=== PATIENT | female | born 1945 | race Caucasian/White ===

== ENCOUNTER 2017-06-02 05:39 | Inpatient (IN) | payer MEDICARE ==
[2017-06-02] MEDS ORDERED: GELATIN SPONGE,ABSORB (LARGE) 1 EACH SPONGE TOPICAL STA (06:11)
[2017-06-02] MEDS ORDERED: DIPH,PERTUS(ACELL)TETVAC-LF 0.5 ML VIAL IM ONE (06:35)
[2017-06-02] MEDS ORDERED: ceFAZolin 1,000 MG in DEXTROSE/WATER 1 50ML.BAG IVPB STA (06:35)
--- NOTE | 2017-06-02 06:39 | ED ---
General Adult HPI - General Source: patient, RN notes reviewed Mode of arrival: EMS Limitations: no limitations <Alo Potts - Last Filed: 06/02/17 07:06> <Isatu Alba - Last Filed: 06/02/17 08:13> - General Chief complaint: Wound/Laceration Stated complaint: LEG LAC Time Seen by Provider: 06/02/17 05:46 - History of Present Illness Initial comments: Patient is a pleasant 72-year-old female presenting to the emergency Department with leg laceration. Reportedly patient in bowel and cut her right leg on the side of the bed. Unclear last tetanus immunization. Patient has had bleeding since that time. EMS provided bandage however patient did have some bleeding still. Patient has not recently seen her doctor because she felt too weak. Patient has been having some shortness of breath somewhat chronically. Patient has been having leg swelling however is not taking her Lasix. (Alo Potts) - Related Data Home Medications Medication Instructions Recorded Confirmed Bumetanide 1 mg PO 06/02/17 Doxepin [SINEquan] 25 mg PO DAILY 06/02/17 06/02/17 HYDROcodone/APAP 7.5-325MG [[place] 1 tab PO Q6HR PRN 06/02/17 06/02/17 7.5-325] Losartan [Cozaar] 100 mg PO DAILY 06/02/17 06/02/17 Allergies Allergy/AdvReac Type Severity Reaction Status Date / Time Penicillins Allergy Severe Rash/Hives Verified 06/02/17 08:04 nickel Allergy Mild Rash/Hives Verified 06/02/17 08:04 Review of Systems ROS Other: All systems not noted in ROS Statement are negative. Constitutional: Denies: fever Eyes: Denies: eye pain ENT: Denies: ear pain Respiratory: Reports: dyspnea Cardiovascular: Denies: chest pain Endocrine: Reports: fatigue Gastrointestinal: Denies: abdominal pain Genitourinary: Denies: dysuria Musculoskeletal: Denies: back pain Skin: Denies: rash Neurological: Denies: headache <Alo Potts - Last Filed: 06/02/17 07:06> ROS Other: All systems not noted in ROS Statement are negative. <Isatu Alba - Last Filed: 06/02/17 08:13> ROS Statement: Those systems with pertinent positive or pertinent negative responses have been documented in the HPI. Past Medical History Past Medical History: Renal Disease Additional Past Medical History / Comment(s): PAtient is not a good historian states she has been told she has lung problems. Additional Past Surgical History / Comment(s): Hip replacement right hip. Past Psychological History: No Psychological Hx Reported Smoking Status: Never smoker Past Alcohol Use History: Heavy Past Drug Use History: None Reported <Alo Potts - Last Filed: 06/02/17 07:06> General Exam Limitations: no limitations General appearance: alert, in no apparent distress Head exam: Present: atraumatic Eye exam: Present: normal appearance, PERRL ENT exam: Present: normal oropharynx Neck exam: Present: normal inspection Respiratory exam: Present: normal lung sounds bilaterally Cardiovascular Exam: Present: irregular rhythm GI/Abdominal exam: Present: soft. Absent: tenderness Extremities exam: Present: pedal edema. Absent: calf tenderness Back exam: Present: normal inspection Neurological exam: Present: alert Psychiatric exam: Present: normal affect, normal mood Skin exam: Present: other (Right lateral lower leg with 17 cm laceration with active bleeding.) <Alo Potts - Last Filed: 06/02/17 07:06> Course <Alo Potts - Last Filed: 06/02/17 07:06> <Isatu Alba - Last Filed: 06/02/17 08:13> Vital Signs 06/02/17 06/02/17 05:41 05:56 Temperature 97.0 F L Respiratory 16 16 Rate Blood Pressure 149/84 O2 Sat by Pulse 96 Oximetry Patient was reviewed at term 8 AM, noticed quite a few abnormalities CO2 is 17 consistent with a metabolic acidosis sodium is 124 chest x-ray showed some cardiomegaly troponin is elevated 0.065 creatinine is 2.04 do not know her baseline creatinine spoke with the Dr. Altman considering her increased weakness and she bled quite a bit after the laceration also noticed some erythema because she stopped stopped taking her Lasix and chest x-ray also showed some pneumonia she be put on some antibiotics and I'm canal hold off the heparin considering a lack few hours ago with the quite a bit of bleeding can call cardiology and she also has a renal failure we'll consult the Dr. Poe ( Isatu Alba) - Reevaluation(s) Reevaluation #1: 06/02/17 07:06 Patient lost approximately 200-300 mL of blood during suturing secondary to continued active bleeding on arrival. No active bleeding at this time. (Alo Potts) EKG Findings - EKG Comments: EKG Findings:: Him EKG is atrial fibrillation ventricular rate is 91 TX interval , QRS duration is 108 QT/QTc is 398/489 review of this EKG reveals some T-wave flattening in lead 1 to and aVL, this is a very low voltage EKG no ST elevation or ST depression noticed <Isatu Alba - Last Filed: 06/02/17 08:13> Procedures - Laceration Laceration #1 Consent Obtained: verbal consent, emergent situation Time Out Performed: Yes Indication: laceration Site: lower extremity Size (cm): 17 Description: flap Depth: simple, single layer Anesthetic Used: lidocaine 1% Pre-repair: wound explored, irrigated extensively Type of Sutures: nylon Size of Sutures: 4-0 Number of Sutures: 32 <Alo Potts - Last Filed: 06/02/17 07:06> <Isatu Alba - Last Filed: 06/02/17 08:13> - Laceration Laceration #1 Additional Comments: Secondary to skin tenderness and leg swelling unable to completely approximate lacerated tissue. There is areas up to 6 or 80 m still somewhat open. There was still some mild active bleeding. Wound seal was applied. Gelfoam was applied and leg was bandaged. Following wound seal and Gelfoam, hemostasis was obtained. (Alo Potts) Medical Decision Making - Lab Data Result diagrams: 06/02/17 05:55 06/02/17 05:55 <Alo Potts - Last Filed: 06/02/17 07:06> - Lab Data Result diagrams: 06/02/17 05:55 06/02/17 05:55 <Isatu Alba - Last Filed: 06/02/17 08:13> - Lab Data Lab Results 06/02/17 06/02/17 06/02/17 Range/Units 05:55 05:55 05:55 WBC 5.5 (3.8-10.6) k/uL RBC 4.02 (3.80-5.40) m/uL Hgb 12.2 (11.4-16.0) gm/dL Hct 36.1 (34.0-46.0) % MCV 90.0 (80.0-100.0) fL MCH 30.4 (25.0-35.0) pg MCHC 33.8 (31.0-37.0) g/dL RDW 13.4 (11.5-15.5) % Plt Count 162 (150-450) k/uL Neutrophils % 68 % Lymphocytes % 18 % Monocytes % 6 % Eosinophils % 5 % Basophils % 0 % Neutrophils # 3.7 (1.3-7.7) k/uL Lymphocytes # 1.0 (1.0-4.8) k/uL Monocytes # 0.3 (0-1.0) k/uL Eosinophils # 0.3 (0-0.7) k/uL Basophils # 0.0 (0-0.2) k/uL PT (9.0-12.0) sec INR (<1.2) APTT (22.0-30.0) sec Sodium 124 L (137-145) mmol/L Potassium 4.7 (3.5-5.1) mmol/L Chloride 94 L (98-107) mmol/L Carbon Dioxide 17 L (22-30) mmol/L Anion Gap 13 mmol/L BUN 24 H (7-17) mg/dL Creatinine 2.07 H (0.52-1.04) mg/dL Est GFR (CKD-EPI)AfAm 27 (>60 ml/min/1.73 sqM) Est GFR (CKD-EPI)NonAf 23 (>60 ml/min/1.73 sqM) Glucose 83 (74-99) mg/dL Calcium 8.6 (8.4-10.2) mg/dL Total Bilirubin 1.5 H (0.2-1.3) mg/dL AST 39 H (14-36) U/L ALT 31 (9-52) U/L Alkaline Phosphatase 97 (38-126) U/L Total Creatine Kinase 49 (30-135) U/L CK-MB (CK-2) 1.4 (0.0-2.4) ng/mL CK-MB (CK-2) Rel Index 2.9 Troponin I 0.065 H* (0.000-0.034) ng/mL Total Protein 6.1 L (6.3-8.2) g/dL Albumin 3.3 L (3.5-5.0) g/dL 06/02/17 Range/Units 05:55 WBC (3.8-10.6) k/uL RBC (3.80-5.40) m/uL Hgb (11.4-16.0) gm/dL Hct (34.0-46.0) % MCV (80.0-100.0) fL MCH (25.0-35.0) pg MCHC (31.0-37.0) g/dL RDW (11.5-15.5) % Plt Count (150-450) k/uL Neutrophils % % Lymphocytes % % Monocytes % % Eosinophils % % Basophils % % Neutrophils # (1.3-7.7) k/uL Lymphocytes # (1.0-4.8) k/uL Monocytes # (0-1.0) k/uL Eosinophils # (0-0.7) k/uL Basophils # (0-0.2) k/uL PT 12.1 H (9.0-12.0) sec INR 1.3 H (<1.2) APTT 24.4 (22.0-30.0) sec Sodium (137-145) mmol/L Potassium (3.5-5.1) mmol/L Chloride (98-107) mmol/L Carbon Dioxide (22-30) mmol/L Anion Gap mmol/L BUN (7-17) mg/dL Creatinine (0.52-1.04) mg/dL Est GFR (CKD-EPI)AfAm (>60 ml/min/1.73 sqM) Est GFR (CKD-EPI)NonAf (>60 ml/min/1.73 sqM) Glucose (74-99) mg/dL Calcium (8.4-10.2) mg/dL Total Bilirubin (0.2-1.3) mg/dL AST (14-36) U/L ALT (9-52) U/L Alkaline Phosphatase (38-126) U/L Total Creatine Kinase (30-135) U/L CK-MB (CK-2) (0.0-2.4) ng/mL CK-MB (CK-2) Rel Index Troponin I (0.000-0.034) ng/mL Total Protein (6.3-8.2) g/dL Albumin (3.5-5.0) g/dL Disposition <Alo Potts - Last Filed: 06/02/17 07:06> <Isatu Alba - Last Filed: 06/02/17 08:13> Clinical Impression: Weakness, Renal failure, Pneumonia, Myocardial infarction, Atrial fibrillation Disposition: ADMITTED IP TO THIS HOSP Condition: Good Referrals: Marciano Altman MD [Primary Care Provider] - 1-2 days
[2017-06-02 06:49] LABS: Basophils % (A) 0 %; Eosinophils # (A) 0.3 k/uL (0-0.7); Eosinophils % (A) 5 %; HCT 36.1 % (34.0-46.0); HGB 12.2 gm/dL (11.4-16.0); Lymphocytes % (A) 18 %; MCH 30.4 pg (25.0-35.0); MCHC 33.8 g/dL (31.0-37.0); Mean Platelet Volume 7.6; Monocytes # (A) 0.3 k/uL (0-1.0); Monocytes % (A) 6 %; Neutrophils # (A) 3.7 k/uL (1.3-7.7); Neutrophils % (A) 68 %; Platelet Count 162 k/uL (150-450); RBC 4.02 m/uL (3.80-5.40); RDW 13.4 % (11.5-15.5); WBC 5.5 k/uL (3.8-10.6)
[2017-06-02 06:56] LABS: INR 1.3 (<1.2); Partial Thromboplastin Time 24.4 sec (22.0-30.0); Prothrombin Time 12.1 sec (9.0-12.0)
[2017-06-02 07:00] LABS: Albumin 3.3 g/dL (3.5-5.0); Calcium 8.6 mg/dL (8.4-10.2); Potassium 4.7 mmol/L (3.5-5.1); Total Bilirubin 1.5 mg/dL (0.2-1.3); Total Protein 6.1 g/dL (6.3-8.2)
--- NOTE | 2017-06-02 07:06 | XR ---
EXAMINATION TYPE: XR chest 2V DATE OF EXAM: 06/02/2017 COMPARISON: Chest x-ray March 16, 2013. HISTORY: Shortness of breath. TECHNIQUE: Frontal and lateral views of the chest are obtained. FINDINGS: Cardiomegaly is redemonstrated. There is worsening left basilar opacity now felt to reflec t moderate size left pleural effusion and associated left basilar atelectasis and/or infiltrate. Slig ht mediastinal shift to the left is felt present. Right lung remains clear. The osseous structures are intact. IMPRESSION: Cardiomegaly with increasing left basilar opacity, suspect fairly moderate size left ple ural effusion on current study. There is associated left basilar atelectasis and/or infiltrate. Subtl e left-sided volume loss with favor atelectatic component.
[2017-06-02 07:22] LABS: Creatine Kinase MB 1.4 ng/mL (0.0-2.4)
[2017-06-02 07:26] LABS: Troponin I 0.065 ng/mL (0.000-0.034)
--- NOTE | 2017-06-02 07:31 | XR ---
EXAMINATION TYPE: XR tibia fibula RT DATE OF EXAM: 06/02/2017 CLINICAL HISTORY: Laceration injury with pain. TECHNIQUE: Two views of the right leg are obtained. COMPARISON: None. FINDINGS: Osseous structures are demineralized which is noted to lower radiographic sensitivity. The re is no acute fracture or dislocation seen in the right tibia or fibula. There is moderate to severe medial compartment joint space loss at level of knee. Visualized ankle joint is within normal limits . There is moderate diffuse subcutaneous edema. Artifact from overlying sock or compression device is noted. IMPRESSION: There is no acute fracture or dislocation seen in the right tibia or fibula.
[2017-06-02] MEDS ORDERED: NITROGLYCERIN SL TABS 0.4 MG TAB SUBLINGUAL PRN (08:14)
[2017-06-02] MEDS ORDERED: HEPARIN SODIUM,PORCINE 5,000 UNIT/ML 1 ML VIAL IV ONE (08:14)
[2017-06-02] MEDS ORDERED: HEPARIN SOD,PORK IN 0.45% NACL 25,000 UNIT in 0.45% NACL 1 500ML.BAG IV SCH (08:15)
[2017-06-02] MEDS ORDERED: AZITHROMYCIN 500 MG TAB PO STA (08:22)
[2017-06-02] MEDS ORDERED: cefTRIAXone IN SWFI 2,000 MG/20 ML SYRINGE IVP STA (08:22)
[2017-06-02] MEDS ORDERED: BUMETANIDE 1 MG TAB PO SCH (09:00)
[2017-06-02] MEDS ORDERED: LOSARTAN 50 MG TAB PO SCH (09:00)
[2017-06-02] MEDS: HYDROcodone/APAP 7.5-325MG 1 EACH TAB PO PRN ×2 (09:20→18:29)
[2017-06-02] MEDS: DOXEPIN 25 MG CAP PO SCH (09:21)
--- NOTE | 2017-06-02 12:12 | CONS ---
CONSULTATION Shannan is a 72-year-old lady with history of hypertension who presents to the hospital having had a fall at home with laceration involving the right leg. In the ER, she was found to be in atrial fibrillation for which Cardiology had been consulted. She denies chest pain, difficulty in breathing, palpitations, dizziness or syncope. The patient had series of labs in the ER that showed renal insufficiency with a creatinine of 2 and for unclear reasons both troponin and BNP have been done and the troponin came back at 0.06. BNP is elevated at 7230. The patient is being admitted for all these problems. Her main problem at home is that she has bilateral knee arthritis and her physical activity is very limited. PAST MEDICAL HISTORY: Past medical history is significant for hypertension. MEDICATIONS: Medications include [place], Cozaar, doxepin, and Bumex. ALLERGIES: Allergic to PENICILLIN. FAMILY HISTORY: Family history is negative for premature coronary artery disease. SOCIAL HISTORY: Negative for current smoking, EtOH abuse, or drug abuse. REVIEW OF SYSTEMS: HEENT is unremarkable. CARDIAC: As described above. RESPIRATORY: Negative. GI: Negative. GENITOURINARY: Negative, ALLERGY/IMMUNOLOGY: Negative. SKIN: Negative. MUSCULOSKELETAL: Significant for fall and laceration. PSYCHOSOCIAL: Negative. ENDOCRINE: Negative. HEMATOLOGICAL: Negative. DERM: Negative. ONCOLOGICAL: Negative. PHYSICAL EXAM: On exam, comfortable at rest. Vital signs are stable. There is no jugular venous distention. Carotid upstroke is normal. There is no bruit. Chest exam reveals good air entry bilaterally. Heart exam reveals first and second heart sounds, irregular rhythm. No murmur. Abdomen is soft, nontender. Examination of extremities did not reveal any edema. Peripheral pulses are palpable. Right leg is covered by surgical dressing. LABS: Labs show a hemoglobin of 12.2. Potassium is 4.7. Creatinine is 2. Troponin is 0.065. ASSESSMENT: 1. Persistent atrial fibrillation, new onset, heart rate is well controlled. 2. Elevated troponin probably related to renal insufficiency. 3. Renal insufficiency. 4. Chronic congestive heart failure. PLAN: Patient is currently on IV heparin, which I am going to continue. If the patient is covered for Eliquis, we will switch her to Eliquis. I will obtain a 2D echo to assess her LV function. The elevated troponin does not require further evaluation at this time. However, we will consider an outpatient stress test on her. Patient has hyponatremia, this may be related to the Bumex that she is on. I am going to hold it at this time. MMJELLY / ESE: [id number] /
--- NOTE | 2017-06-02 12:51 | P.NPCON ---
History of Present Illness - Reason for Consult acute renal failure, hyponatremia - History of Present Illness Reason for consultation: Acute kidney injury and hyponatremia History of present illness: Patient is a 72-year-old female seen in renal consultation for acute kidney injury and hyponatremia. Unclear as to what her baseline renal function is. Patient denies any prior history of kidney disease. Her creatinine on admission today is 2.07. Patient presented to the hospital after sustaining a fall. Patient states uses a walker at home and sustained a mechanical fall injuring her left lower extremity. Patient also states that she is maintained on Bumex as an outpatient but did not take it for the last 1 week. She has been voiding. Denies any hematuria or dysuria. She denies history of diabetes. Her sodium level was noted to be low at 124 on admission. She is noted to have left-sided pleural effusion on chest x-ray. Patient states she is retaining quite a bit of water due to not taking her diuretics last week. Denies chest pain. Does admit to dyspnea. She admits to using NSAIDs intermittently as needed for pain. She did receive a dose of oral Bumex this morning in the ER. She is currently undergoing an echocardiogram. Denies family history of renal disease. No evidence of hypotension. Most recent blood pressure was 136/62. She is also noted to have erythema in her lower extremities and is maintained on cefazolin at this time. Vital signs are stable. General: The patient appeared well nourished and normally developed. HEENT: Head exam is unremarkable. Neck is without jugular venous distension. LUNGS: Lungs are clear to auscultation and percussion. Breath sounds decreased. HEART: Rate and Rhythm are regular. First and second heart sounds normal. No murmurs, rubs or gallops. ABDOMEN: Abdominal exam reveals normal bowel sounds. Non-tender and non- distended. No evidence of peritonitis. EXTREMITITES: Bilateral lower extremity erythema noted. 1+ edema. No obvious drainage. Past Medical History Past Medical History: Renal Disease Additional Past Medical History / Comment(s): PAtient is not a good historian states she has been told she has lung problems. Additional Past Surgical History / Comment(s): Hip replacement right hip. Past Psychological History: No Psychological Hx Reported Smoking Status: Never smoker Past Alcohol Use History: Heavy Past Drug Use History: None Reported Medications and Allergies Home Medications Medication Instructions Recorded Confirmed Type Bumetanide 1 mg PO DAILY 06/02/17 06/02/17 History Doxepin [SINEquan] 25 mg PO DAILY 06/02/17 06/02/17 History HYDROcodone/APAP 7.5-325MG [[place] 1 tab PO Q6HR PRN 06/02/17 06/02/17 History 7.5-325] Losartan [Cozaar] 100 mg PO DAILY 06/02/17 06/02/17 History Allergies Allergy/AdvReac Type Severity Reaction Status Date / Time Penicillins Allergy Severe Rash/Hives Verified 06/02/17 08:04 nickel Allergy Mild Rash/Hives Verified 06/02/17 08:04 Physical Exam Vitals: Vital Signs Temp Pulse Resp BP Pulse Ox 06/02/17 11:07 83 18 136/62 100 06/02/17 10:06 94 16 124/63 99 06/02/17 09:28 92 18 154/70 99 06/02/17 08:15 88 18 128/67 100 06/02/17 05:56 16 06/02/17 05:41 97.0 F L 16 149/84 96 Intake and Output 06/01/17 06/02/17 06/02/17 22:59 06:59 14:59 Other: Weight 102.058 kg Results - Lab Results Most recent lab results Calcium 8.6 mg/dL (8.4-10.2) 06/02/17 05:55 06/02/17 05:55 06/02/17 05:55 Assessment and Plan Plan: Assessment: #1. Nonoliguric acute kidney injury secondary to ATN secondary to cardiorenal syndrome. Creatinine 2.07 on admission. Unclear as to what her baseline renal function is. #2. Hypervolemic hyponatremia. #3. Metabolic acidosis secondary to acute kidney injury. #4. Lower extremity cellulitis maintained on antibiotics. #5. Volume overload. Left-sided pleural effusion present on chest x-ray. Plan: Start Lasix 60 mg IV twice daily. Discontinue oral diuretics. 1200 mL fluid restriction. Check urine sodium and urine/serum osmolality. Add oral sodium bicarbonate 1300 mg twice daily. Check urinalysis. Check renal ultrasound. Follow-up echocardiogram results. Repeat electrolytes at 8 PM today. Avoid nephrotoxic agents and hypotensive episodes. Thank you for the consultation. I will continue to follow the patient with you during her hospital stay.
[2017-06-02] MEDS: SODIUM BICARBONATE TAB 650 MG TAB PO SCH ×2 (12:55→20:34)
[2017-06-02 13:05] LABS: Creatine Kinase MB 1.6 ng/mL (0.0-2.4)
[2017-06-02 13:10] LABS: Troponin I 0.066 ng/mL (0.000-0.034)
--- NOTE | 2017-06-02 14:17 | US ---
EXAMINATION TYPE: US kidneys/renal and bladder DATE OF EXAM: 06/02/2017 COMPARISON: NONE CLINICAL HISTORY: 72 year-old female acute kidney injury. Technique: Multiple sonographic images of the kidneys and bladder are obtained. FINDINGS: Radiology Clerk notes: Exam limited by morbid and obesity. Right Kidney: 9.6 x 5.4 x 5.2 cm without evident hydronephrosis. Left Kidney: 9.2 x 4.9 x 5.8 cm without evident hydronephrosis. Underdistention of the bladder limits its evaluation.Bilateral Jets seen: no IMPRESSION: Very limited exam due to patient's large body habitus. No obvious hydronephrosis seen.
[2017-06-02] MEDS ORDERED: ceFAZolin 1,000 MG in DEXTROSE/WATER 1 50ML.BAG IVPB SCH (16:00)
[2017-06-02 16:32] LABS: Appearance,Urine Turbid (Clear); Bacteria,Urine Few /hpf; Bilirubin,Urine Negative (Negative); Blood,Urine Moderate (Negative); Color,Urine Yellow; Glucose,Urine (UA) Negative (Negative); Ketones,Urine Negative (Negative); Leukocyte Esterase,Urine Large (Negative); Nitrite,Urine Negative (Negative); PH, Urine 5.5 (5.0-8.0); Protein,Urine 1+ (Negative); Specific Gravity,Urine 1.013 (1.001-1.035); Squamous Epithelial Cell,Urine 4 /hpf (0-4); Urobilinogen,Urine <2.0 mg/dL (<2.0); WBC,Urine >182 /hpf (0-5)
[2017-06-02 19:03] LABS: Creatine Kinase MB 1.8 ng/mL (0.0-2.4)
[2017-06-02] MEDS ORDERED: LIDOCAINE 1%-EPI 1:100,000 30 ML VIAL SQ STA (19:06)
[2017-06-02 19:14] LABS: Troponin I 0.052 ng/mL (0.000-0.034)
[2017-06-02] MEDS: MORPHINE ORAL SOLN 10 MG/5 ML CUP PO PRN (19:15)
[2017-06-02 19:24] LABS: HCT 31.6 % (34.0-46.0); HGB 10.4 gm/dL (11.4-16.0); MCH 29.9 pg (25.0-35.0); MCHC 32.8 g/dL (31.0-37.0); MCV 91.3 fL (80.0-100.0); Mean Platelet Volume 8.6; Platelet Count 139 k/uL (150-450); RBC 3.46 m/uL (3.80-5.40); RDW 13.6 % (11.5-15.5); WBC 6.7 k/uL (3.8-10.6)
[2017-06-02 19:33] LABS: Calcium 8.4 mg/dL (8.4-10.2)
--- NOTE | 2017-06-02 20:01 | P.GSCN ---
History of Present Illness Consult date: 06/02/17 History of present illness: This [age] female presented a hospital after a fall. She is found have new onset A. fib.She apparently suffered a right lower extremity skin tear and laceration which was repaired in the emergency department. She is found have an elevated troponin along with the new onset A. fib and was started on a heparin drip. When she got to the floor she began bleeding from the right lower extremity wound. She developed a hematoma and had bleeding which would not stop therefore surgery was consult. Direct pressure was held and the heparin was stopped for 2 hours while pressure was held and the bleeding stopped. Review of Systems - Constitutional Reports as per HPI Past Medical History Past Medical History: GERD/Reflux, Hypertension, Pneumonia, Renal Disease Additional Past Medical History / Comment(s): pt somewhat a poor historian- assisted with admission hx.. 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 History of Any Multi-Drug Resistant Organisms: None Reported Past Surgical History: Appendectomy Additional Past Surgical History / Comment(s): Hip replacement right hip. sx for ecopic pregnancies x2 -both fallopian tubes removed and 1 ovary (not sure which one). Past Anesthesia/Blood Transfusion Reactions: Motion Sickness Additional Past Anesthesia/Blood Transfusion Reaction / Comm: clausterphobia Smoking Status: Former smoker - Past Family History Mother Family Medical History: Renal Disease Father Family Medical History: CVA/TIA, Hyperlipidemia, Hypertension Additional Family Medical History / Comment(s): from stroke age 45 Medications and Allergies Home Medications Medication Instructions Recorded Confirmed Type Bumetanide 1 mg PO DAILY 06/02/17 06/02/17 History Doxepin [SINEquan] 25 mg PO DAILY 06/02/17 06/02/17 History HYDROcodone/APAP 7.5-325MG [[place] 1 tab PO Q6HR PRN 06/02/17 06/02/17 History 7.5-325] Losartan [Cozaar] 100 mg PO DAILY 06/02/17 06/02/17 History Allergies Allergy/AdvReac Type Severity Reaction Status Date / Time Penicillins Allergy Severe Rash/Hives Verified 06/02/17 08:04 nickel Allergy Mild Rash/Hives Verified 06/02/17 08:04 Surgical - Exam Osteopathic Statement: *. No significant issues noted on an osteopathic structural exam other than those noted in the History and Physical/Consult. Vital Signs Temp Resp BP Pulse Ox 97.0 F L 16 149/84 96 06/02/17 05:41 06/02/17 05:41 06/02/17 05:41 06/02/17 05:41 - General well developed, well nourished - Eyes PERRL - ENT normal pinna, normal mucosa - Neck no masses, trachea midline - Respiratory normal expansion, normal respiratory effort - Cardiovascular Rhythm: irregularly irregular - Abdomen Abdomen: soft, non tender - Integumentary 6 cm skin tear laceration on the right anterior leg with large hematoma. No active bleeding - Neurologic normal coordination, normal sensation - Psychiatric oriented to time, oriented to person, oriented to place Results - Labs 06/02/17 19:07 06/02/17 19:07 Abnormal Lab Results - Last 24 Hours (Table) 06/02/17 06/02/17 06/02/17 Range/Units 05:55 05:55 05:55 RBC (3.80-5.40) m/uL Hgb (11.4-16.0) gm/dL Hct (34.0-46.0) % Plt Count (150-450) k/uL PT 12.1 H (9.0-12.0) sec INR 1.3 H (<1.2) APTT (22.0-30.0) sec Sodium 124 L (137-145) mmol/L Chloride 94 L (98-107) mmol/L Carbon Dioxide 17 L (22-30) mmol/L BUN 24 H (7-17) mg/dL Creatinine 2.07 H (0.52-1.04) mg/dL Osmolality (280-301) mosm/kg Total Bilirubin 1.5 H (0.2-1.3) mg/dL AST 39 H (14-36) U/L Troponin I 0.065 H* (0.000-0.034) ng/mL Total Protein 6.1 L (6.3-8.2) g/dL Albumin 3.3 L (3.5-5.0) g/dL Urine Appearance (Clear) Urine Protein (Negative) Urine Blood (Negative) Ur Leukocyte Esterase (Negative) Urine WBC (0-5) /hpf Urine WBC Clumps (None) /hpf Urine Bacteria (None) /hpf 06/02/17 06/02/17 06/02/17 Range/Units 11:53 11:53 15:38 RBC (3.80-5.40) m/uL Hgb (11.4-16.0) gm/dL Hct (34.0-46.0) % Plt Count (150-450) k/uL PT (9.0-12.0) sec INR (<1.2) APTT 69.8 H (22.0-30.0) sec Sodium (137-145) mmol/L Chloride (98-107) mmol/L Carbon Dioxide (22-30) mmol/L BUN (7-17) mg/dL Creatinine (0.52-1.04) mg/dL Osmolality 264 L (280-301) mosm/kg Total Bilirubin (0.2-1.3) mg/dL AST (14-36) U/L Troponin I 0.066 H* (0.000-0.034) ng/mL Total Protein (6.3-8.2) g/dL Albumin (3.5-5.0) g/dL Urine Appearance (Clear) Urine Protein (Negative) Urine Blood (Negative) Ur Leukocyte Esterase (Negative) Urine WBC (0-5) /hpf Urine WBC Clumps (None) /hpf Urine Bacteria (None) /hpf 06/02/17 06/02/17 06/02/17 Range/Units 16:19 18:01 19:07 RBC (3.80-5.40) m/uL Hgb (11.4-16.0) gm/dL Hct (34.0-46.0) % Plt Count (150-450) k/uL PT (9.0-12.0) sec INR (<1.2) APTT (22.0-30.0) sec Sodium 125 L (137-145) mmol/L Chloride 92 L (98-107) mmol/L Carbon Dioxide (22-30) mmol/L BUN 27 H (7-17) mg/dL Creatinine 2.01 H (0.52-1.04) mg/dL Osmolality (280-301) mosm/kg Total Bilirubin (0.2-1.3) mg/dL AST (14-36) U/L Troponin I 0.052 H* (0.000-0.034) ng/mL Total Protein (6.3-8.2) g/dL Albumin (3.5-5.0) g/dL Urine Appearance Turbid H (Clear) Urine Protein 1+ H (Negative) Urine Blood Moderate H (Negative) Ur Leukocyte Esterase Large H (Negative) Urine WBC >182 H (0-5) /hpf Urine WBC Clumps Many H (None) /hpf Urine Bacteria Few H (None) /hpf 06/02/17 Range/Units 19:07 RBC 3.46 L (3.80-5.40) m/uL Hgb 10.4 L (11.4-16.0) gm/dL Hct 31.6 L (34.0-46.0) % Plt Count 139 L (150-450) k/uL PT (9.0-12.0) sec INR (<1.2) APTT (22.0-30.0) sec Sodium (137-145) mmol/L Chloride (98-107) mmol/L Carbon Dioxide (22-30) mmol/L BUN (7-17) mg/dL Creatinine (0.52-1.04) mg/dL Osmolality (280-301) mosm/kg Total Bilirubin (0.2-1.3) mg/dL AST (14-36) U/L Troponin I (0.000-0.034) ng/mL Total Protein (6.3-8.2) g/dL Albumin (3.5-5.0) g/dL Urine Appearance (Clear) Urine Protein (Negative) Urine Blood (Negative) Ur Leukocyte Esterase (Negative) Urine WBC (0-5) /hpf Urine WBC Clumps (None) /hpf Urine Bacteria (None) /hpf Diabetes panel 06/02/17 06/02/17 Range/Units 05:55 19:07 Sodium 124 L 125 L (137-145) mmol/L Potassium 4.7 5.0 (3.5-5.1) mmol/L Chloride 94 L 92 L (98-107) mmol/L Carbon Dioxide 17 L 23 (22-30) mmol/L BUN 24 H 27 H (7-17) mg/dL Creatinine 2.07 H 2.01 H (0.52-1.04) mg/dL Glucose 83 91 (74-99) mg/dL Calcium 8.6 8.4 (8.4-10.2) mg/dL AST 39 H (14-36) U/L ALT 31 (9-52) U/L Alkaline Phosphatase 97 (38-126) U/L Total Protein 6.1 L (6.3-8.2) g/dL Albumin 3.3 L (3.5-5.0) g/dL Calcium panel 06/02/17 06/02/17 Range/Units 05:55 19:07 Calcium 8.6 8.4 (8.4-10.2) mg/dL Albumin 3.3 L (3.5-5.0) g/dL Pituitary panel 06/02/17 06/02/17 Range/Units 05:55 19:07 Sodium 124 L 125 L (137-145) mmol/L Potassium 4.7 5.0 (3.5-5.1) mmol/L Chloride 94 L 92 L (98-107) mmol/L Carbon Dioxide 17 L 23 (22-30) mmol/L BUN 24 H 27 H (7-17) mg/dL Creatinine 2.07 H 2.01 H (0.52-1.04) mg/dL Glucose 83 91 (74-99) mg/dL Calcium 8.6 8.4 (8.4-10.2) mg/dL Adrenal panel 06/02/17 06/02/17 Range/Units 05:55 19:07 Sodium 124 L 125 L (137-145) mmol/L Potassium 4.7 5.0 (3.5-5.1) mmol/L Chloride 94 L 92 L (98-107) mmol/L Carbon Dioxide 17 L 23 (22-30) mmol/L BUN 24 H 27 H (7-17) mg/dL Creatinine 2.07 H 2.01 H (0.52-1.04) mg/dL Glucose 83 91 (74-99) mg/dL Calcium 8.6 8.4 (8.4-10.2) mg/dL Total Bilirubin 1.5 H (0.2-1.3) mg/dL AST 39 H (14-36) U/L ALT 31 (9-52) U/L Alkaline Phosphatase 97 (38-126) U/L Total Protein 6.1 L (6.3-8.2) g/dL Albumin 3.3 L (3.5-5.0) g/dL Assessment and Plan Assessment: Right lower extremity laceration and hematoma, A. fib elevated troponins Plan: At this time the bleeding is controlled. I do not recommend continuing with heparin given she was actively bleeding well on it. We will continue with a pressure dressing. When patient is cleared from medicine and cardiology standpoint she will likely need debridement in the operating room and possible wound VAC placement.
[2017-06-02] MEDS: ATORVASTATIN 40 MG TAB PO SCH (20:34)
[2017-06-02] MEDS ORDERED: FUROSEMIDE 10 MG/ML 10 ML VIAL IV SCH (21:00)
--- NOTE | 2017-06-02 21:36 | ECHOF ---
Referral Reason:afib MEASUREMENTS -------- HEIGHT: 165.1 cm WEIGHT: 102.1 kg BP: 136/62 RVIDd: 3.3 cm (< 3.3) IVSd: 1.6 cm (0.6 - 1.1) LVIDd: 4.2 cm (3.9 - 5.3) LVPWd: 1.6 cm (0.6 - 1.1) IVSs: 1.7 cm LVIDs: 3.2 cm LVPWs: 1.7 cm LA Diam: 3.7 cm (2.7 - 3.8) LAESV Index (A-L): 35.92 ml/m Ao Diam: 2.9 cm (2.0 - 3.7) AV Cusp: 1.6 cm (1.5 - 2.6) MV EXCURSION: 13.189 mm (> 18.000) MV EF SLOPE: 55 mm/s (70 - 150) EPSS: 1.6 cm RAP: 5.00 mmHg RVSP: 33.39 mmHg FINDINGS -------- Atrial fibrillation. This was a technically difficult study with suboptimal views. The left ventricular size is normal. There is moderate concentric left ventricular hypertrophy. O verall left ventricular systolic function is severely impaired with, an EF between 25 - 30 %. The right ventricle is mildly enlarged. LA is moderately dilated 34-39 ml/m2 The right atrium is normal in size. 5 ml of Lumason was utilized for enhancement of images. There is mild aortic valve sclerosis. The mitral valve leaflets are mildly thickened. Mild mitral annular calcification present. Mild m itral regurgitation is present. Mild tricuspid regurgitation present. There is borderline pulmonary hypertension. The right ventr icular systolic pressure, as measured by Doppler, is 33.39mmHg. Moderate pulmonic regurgitation. The aortic root size is normal. IVC Not well visulized. There is no pericardial effusion. CONCLUSIONS -------- 1. Atrial fibrillation. 2. This was a technically difficult study with suboptimal views. 3. The left ventricular size is normal. 4. There is moderate concentric left ventricular hypertrophy. 5. Overall left ventricular systolic function is severely impaired with, an EF between 25 - 30 %. 6. The right ventricle is mildly enlarged. 7. LA is moderately dilated 34-39 ml/m2 8. The right atrium is normal in size. 9. 5 ml of Lumason was utilized for enhancement of images. 10. There is mild aortic valve sclerosis. 11. The mitral valve leaflets are mildly thickened. 12. Mild mitral annular calcification present. 13. Mild mitral regurgitation is present. 14. Mild tricuspid regurgitation present. 15. There is borderline pulmonary hypertension. 16. The right ventricular systolic pressure, as measured by Doppler, is 33.39mmHg. 17. Moderate pulmonic regurgitation. 18. The aortic root size is normal. 19. IVC Not well visulized. 20. There is no pericardial effusion. CLIENT SERVICES ASSISTANT: Neeta James RDCS
[2017-06-02 21:45] LABS: Glucose,Whole Blood 100 mg/dL (75-99)
[2017-06-03 06:03] LABS: Glucose,Whole Blood 76 mg/dL (75-99)
[2017-06-03 06:49] LABS: Glucose,Whole Blood 83 mg/dL (75-99)
[2017-06-03 07:29] LABS: Basophils % (A) 1 %; Eosinophils # (A) 0.3 k/uL (0-0.7); Eosinophils % (A) 6 %; HCT 32.3 % (34.0-46.0); HGB 10.1 gm/dL (11.4-16.0); Lymphocytes # (A) 0.8 k/uL (1.0-4.8); Lymphocytes % (A) 15 %; MCH 28.9 pg (25.0-35.0); MCHC 31.3 g/dL (31.0-37.0); MCV 92.4 fL (80.0-100.0); Mean Platelet Volume 8.2; Monocytes # (A) 0.3 k/uL (0-1.0); Monocytes % (A) 5 %; Neutrophils # (A) 3.7 k/uL (1.3-7.7); Neutrophils % (A) 72 %; Platelet Count 137 k/uL (150-450); RBC 3.49 m/uL (3.80-5.40); RDW 13.6 % (11.5-15.5); WBC 5.1 k/uL (3.8-10.6)
--- NOTE | 2017-06-03 07:31 | P.HPIM ---
History of Present Illness H&P Date: 06/03/17 Chief Complaint: Elevated troponin, fall This is a history of physical 72-year-old white female who is somewhat a poor historian who states yesterday she had significant change in activity. She has a walker that she was pushing and she actually pushed so hard she fell forward and injured her leg. Evaluation in the emergency room did show atrial fibrillation and renal failure. Troponin is elevated and she is in placed on heparin however this caused significant bleeding of the wound. This is now after surgical evaluation, had hemostasis. The patient however has had a somewhat sudden onset change in mental status this morning. She seems much more suspicious of everyone around her. She is asking for her . Question onset of delirium. Review of Systems Constitutional: Reports fatigue Eyes: denies blurred vision, denies pain Ears, nose, mouth and throat: Denies headache, Denies sore throat Cardiovascular: Reports dyspnea on exertion, Denies chest pain, Denies syncope Respiratory: Denies cough Gastrointestinal: Denies abdominal pain, Denies diarrhea, Denies nausea, Denies vomiting Genitourinary: Denies dysuria, Denies hematuria Musculoskeletal: Denies myalgias Integumentary: Reports rash, Reports wounds, Denies pruritus Neurological: Reports weakness, Denies headaches, Denies numbness Psychiatric: Reports confusion, Reports depression Past Medical History Past Medical History: GERD/Reflux, Hypertension, Pneumonia, Renal Disease Additional Past Medical History / Comment(s): pt somewhat a poor historian- assisted with admission hx.. 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 History of Any Multi-Drug Resistant Organisms: None Reported Past Surgical History: Appendectomy Additional Past Surgical History / Comment(s): Hip replacement right hip. sx for ecopic pregnancies x2 -both fallopian tubes removed and 1 ovary (not sure which one). Past Anesthesia/Blood Transfusion Reactions: Motion Sickness Additional Past Anesthesia/Blood Transfusion Reaction / Comment(s): clausterphobia Smoking Status: Former smoker - Past Family History Mother Family Medical History: Renal Disease Father Family Medical History: CVA/TIA, Hyperlipidemia, Hypertension Additional Family Medical History / Comment(s): from stroke age 45 Medications and Allergies Home Medications Medication Instructions Recorded Confirmed Type Bumetanide 1 mg PO DAILY 06/02/17 06/02/17 History Doxepin [SINEquan] 25 mg PO DAILY 06/02/17 06/02/17 History HYDROcodone/APAP 7.5-325MG [[place] 1 tab PO Q6HR PRN 06/02/17 06/02/17 History 7.5-325] Losartan [Cozaar] 100 mg PO DAILY 06/02/17 06/02/17 History Allergies Allergy/AdvReac Type Severity Reaction Status Date / Time Penicillins Allergy Severe Rash/Hives Verified 06/02/17 08:04 nickel Allergy Mild Rash/Hives Verified 06/02/17 08:04 Physical Exam Vitals: Vital Signs Temp Pulse Pulse Pulse Resp BP BP 06/03/17 03:51 98 13 06/03/17 03:49 96.9 F L 72 98 13 112/58 06/02/17 23:37 92 20 06/02/17 23:34 96.8 F L 65 92 15 130/69 06/02/17 20:00 96.8 F L 78 91 20 115/69 06/02/17 15:03 98 F 94 20 120/71 06/02/17 14:45 94 20 06/02/17 14:22 86 16 133/66 06/02/17 12:57 91 20 140/80 06/02/17 11:07 83 18 136/62 06/02/17 10:06 94 16 124/63 06/02/17 09:28 92 18 154/70 06/02/17 08:15 88 18 128/67 Pulse Ox 06/03/17 03:51 06/03/17 03:49 95 06/02/17 23:37 06/02/17 23:34 95 06/02/17 20:00 98 06/02/17 15:03 96 06/02/17 14:45 06/02/17 14:22 100 06/02/17 12:57 100 06/02/17 11:07 100 06/02/17 10:06 99 06/02/17 09:28 99 06/02/17 08:15 100 Intake and Output 06/02/17 06/03/17 06/03/17 22:59 06:59 14:59 Intake Total 0 150 Output Total 50 Balance -50 150 Intake: Oral 0 150 Output: Urine 50 Other: Voiding Method Indwelling Catheter Indwelling Catheter Weight 115 kg - Constitutional General appearance: obese - EENT Eyes: no abnormal pupil - Respiratory Respiratory: bilateral: CTA - Cardiovascular Rhythm: irregularly irregular Abnormal Heart Sounds: no S3 Gallop - Gastrointestinal General gastrointestinal: soft, no tenderness - Integumentary Integumentary: rash - Musculoskeletal Lower extremity weakness to dorsiflexion. - Psychiatric Psychiatric: no A&O x's 3, no intact judgment & insight Results CBC & Chem 7: 06/02/17 19:07 06/02/17 19:07 Labs: Abnormal Lab Results - Last 24 Hours (Table) 06/02/17 06/02/17 06/02/17 Range/Units 05:55 11:53 11:53 RBC (3.80-5.40) m/uL Hgb (11.4-16.0) gm/dL Hct (34.0-46.0) % Plt Count (150-450) k/uL APTT (22.0-30.0) sec Sodium (137-145) mmol/L Chloride (98-107) mmol/L BUN (7-17) mg/dL Creatinine (0.52-1.04) mg/dL POC Glucose (mg/dL) (75-99) mg/dL Osmolality 264 L (280-301) mosm/kg Troponin I 0.065 H* 0.066 H* (0.000-0.034) ng/mL Urine Appearance (Clear) Urine Protein (Negative) Urine Blood (Negative) Ur Leukocyte Esterase (Negative) Urine WBC (0-5) /hpf Urine WBC Clumps (None) /hpf Urine Bacteria (None) /hpf 06/02/17 06/02/17 06/02/17 Range/Units 15:38 16:19 18:01 RBC (3.80-5.40) m/uL Hgb (11.4-16.0) gm/dL Hct (34.0-46.0) % Plt Count (150-450) k/uL APTT 69.8 H (22.0-30.0) sec Sodium (137-145) mmol/L Chloride (98-107) mmol/L BUN (7-17) mg/dL Creatinine (0.52-1.04) mg/dL POC Glucose (mg/dL) (75-99) mg/dL Osmolality (280-301) mosm/kg Troponin I 0.052 H* (0.000-0.034) ng/mL Urine Appearance Turbid H (Clear) Urine Protein 1+ H (Negative) Urine Blood Moderate H (Negative) Ur Leukocyte Esterase Large H (Negative) Urine WBC >182 H (0-5) /hpf Urine WBC Clumps Many H (None) /hpf Urine Bacteria Few H (None) /hpf 06/02/17 06/02/17 06/02/17 Range/Units 19:07 19:07 21:43 RBC 3.46 L (3.80-5.40) m/uL Hgb 10.4 L (11.4-16.0) gm/dL Hct 31.6 L (34.0-46.0) % Plt Count 139 L (150-450) k/uL APTT (22.0-30.0) sec Sodium 125 L (137-145) mmol/L Chloride 92 L (98-107) mmol/L BUN 27 H (7-17) mg/dL Creatinine 2.01 H (0.52-1.04) mg/dL POC Glucose (mg/dL) 100 H (75-99) mg/dL Osmolality (280-301) mosm/kg Troponin I (0.000-0.034) ng/mL Urine Appearance (Clear) Urine Protein (Negative) Urine Blood (Negative) Ur Leukocyte Esterase (Negative) Urine WBC (0-5) /hpf Urine WBC Clumps (None) /hpf Urine Bacteria (None) /hpf Microbiology - Last 24 Hours (Table) 06/02/17 16:19 Urine Culture - Preliminary Urine,Clean Catch Assessment and Plan (1) Atrial fibrillation Current Visit: Yes Status: Acute Code(s): I48.91 - UNSPECIFIED ATRIAL FIBRILLATION SNOMED Code(s): 35656607 (2) Renal failure Current Visit: Yes Status: Acute Code(s): N19 - UNSPECIFIED KIDNEY FAILURE SNOMED Code(s): 59586251 (3) Weakness Current Visit: Yes Status: Acute Code(s): R53.1 - WEAKNESS SNOMED Code(s) : 90838901 (4) Confusion Current Visit: Yes Status: Acute Code(s): R41.0 - DISORIENTATION, UNSPECIFIED SNOMED Code(s): 345181431 Plan: New-onset delirium. Check computed tomography scan of the head and BNP with d-dimer if necessary. Check BMP in the a.m. with CBC. Also thyroid studies should be evaluated. Consult neurology for altered mental status. I do suspect it is related to her overall comorbidities. See orders otherwise. Dr. Westbrook's group covering for the weekend.
[2017-06-03 07:49] LABS: Calcium 8.5 mg/dL (8.4-10.2); Potassium 4.6 mmol/L (3.5-5.1)
[2017-06-03] MEDS ORDERED: H IVP ONE (08:10)
[2017-06-03] MEDS ORDERED: MORPHINE SULFATE 2 MG/ML SYRINGE ONE (08:12)
--- NOTE | 2017-06-03 08:35 | P.PN ---
Subjective Patient is seen in follow-up for acute kidney injury and hyponatremia. Patient presented to the hospital after sustaining a fall and right lower extremity laceration. Patient was also noted to be in A. fib with RVR. She was started on heparin drip but developed bleeding from the laceration and subsequently heparin was discontinued. Bleeding is better controlled and hemoglobin is stable. She is noted to have an ejection fraction of 25-30% with moderate pulmonic regurgitation. She was started on Lasix 60 mg IV twice daily. Her urine output overnight was nearly a liter. Her dyspnea is improved. Denies any active chest pain or shortness of breath. Heart rate is controlled. Vital signs are stable. General: The patient appeared well nourished and normally developed. HEENT: Head exam is unremarkable. Neck is without jugular venous distension. LUNGS: Lungs are clear to auscultation and percussion. Breath sounds decreased. HEART: Rate and Rhythm are regular. First and second heart sounds normal. No murmurs, rubs or gallops. ABDOMEN: Abdominal exam reveals normal bowel sounds. Non-tender and non- distended. No evidence of peritonitis. EXTREMITITES: 1+ edema. Lower extremity erythema noted. Wrapped. No obvious drainage. Objective - Vital Signs Vital signs: Vital Signs Temp 97 F L 06/03/17 07:55 Pulse 96 06/03/17 07:55 Resp 17 06/03/17 07:55 BP 116/65 06/03/17 07:55 Pulse Ox 96 06/03/17 07:55 Intake & Output 06/02/17 06/03/17 06/03/17 18:59 06:59 18:59 Intake Total 0 150 60 Output Total 50 Balance -50 150 60 Weight 115 kg Intake: Oral 0 150 60 Output: Urine 50 Other: Voiding Method Bedside Commode Indwelling Catheter Bedpan - Labs CBC & Chem 7: 06/03/17 06:45 06/03/17 06:45 Labs: Abnormal Lab Results - Last 24 Hours (Table) 06/02/17 06/02/17 06/02/17 Range/Units 11:53 11:53 15:38 RBC (3.80-5.40) m/uL Hgb (11.4-16.0) gm/dL Hct (34.0-46.0) % Plt Count (150-450) k/uL Lymphocytes # (1.0-4.8) k/uL APTT 69.8 H (22.0-30.0) sec Sodium (137-145) mmol/L Chloride (98-107) mmol/L BUN (7-17) mg/dL Creatinine (0.52-1.04) mg/dL POC Glucose (mg/dL) (75-99) mg/dL Osmolality 264 L (280-301) mosm/kg Troponin I 0.066 H* (0.000-0.034) ng/mL HDL Cholesterol (40-60) mg/dL Urine Appearance (Clear) Urine Protein (Negative) Urine Blood (Negative) Ur Leukocyte Esterase (Negative) Urine WBC (0-5) /hpf Urine WBC Clumps (None) /hpf Urine Bacteria (None) /hpf 06/02/17 06/02/17 06/02/17 Range/Units 16:19 18:01 19:07 RBC (3.80-5.40) m/uL Hgb (11.4-16.0) gm/dL Hct (34.0-46.0) % Plt Count (150-450) k/uL Lymphocytes # (1.0-4.8) k/uL APTT (22.0-30.0) sec Sodium 125 L (137-145) mmol/L Chloride 92 L (98-107) mmol/L BUN 27 H (7-17) mg/dL Creatinine 2.01 H (0.52-1.04) mg/dL POC Glucose (mg/dL) (75-99) mg/dL Osmolality (280-301) mosm/kg Troponin I 0.052 H* (0.000-0.034) ng/mL HDL Cholesterol (40-60) mg/dL Urine Appearance Turbid H (Clear) Urine Protein 1+ H (Negative) Urine Blood Moderate H (Negative) Ur Leukocyte Esterase Large H (Negative) Urine WBC >182 H (0-5) /hpf Urine WBC Clumps Many H (None) /hpf Urine Bacteria Few H (None) /hpf 06/02/17 06/02/17 06/03/17 Range/Units 19:07 21:43 06:45 RBC 3.46 L (3.80-5.40) m/uL Hgb 10.4 L (11.4-16.0) gm/dL Hct 31.6 L (34.0-46.0) % Plt Count 139 L (150-450) k/uL Lymphocytes # (1.0-4.8) k/uL APTT (22.0-30.0) sec Sodium 126 L (137-145) mmol/L Chloride 92 L (98-107) mmol/L BUN 29 H (7-17) mg/dL Creatinine 2.10 H (0.52-1.04) mg/dL POC Glucose (mg/dL) 100 H (75-99) mg/dL Osmolality (280-301) mosm/kg Troponin I (0.000-0.034) ng/mL HDL Cholesterol 72 H (40-60) mg/dL Urine Appearance (Clear) Urine Protein (Negative) Urine Blood (Negative) Ur Leukocyte Esterase (Negative) Urine WBC (0-5) /hpf Urine WBC Clumps (None) /hpf Urine Bacteria (None) /hpf 06/03/17 Range/Units 06:45 RBC 3.49 L (3.80-5.40) m/uL Hgb 10.1 L (11.4-16.0) gm/dL Hct 32.3 L (34.0-46.0) % Plt Count 137 L (150-450) k/uL Lymphocytes # 0.8 L (1.0-4.8) k/uL APTT (22.0-30.0) sec Sodium (137-145) mmol/L Chloride (98-107) mmol/L BUN (7-17) mg/dL Creatinine (0.52-1.04) mg/dL POC Glucose (mg/dL) (75-99) mg/dL Osmolality (280-301) mosm/kg Troponin I (0.000-0.034) ng/mL HDL Cholesterol (40-60) mg/dL Urine Appearance (Clear) Urine Protein (Negative) Urine Blood (Negative) Ur Leukocyte Esterase (Negative) Urine WBC (0-5) /hpf Urine WBC Clumps (None) /hpf Urine Bacteria (None) /hpf Microbiology - Last 24 Hours (Table) 06/02/17 16:19 Urine Culture - Preliminary Urine,Clean Catch Assessment and Plan Plan: Assessment: #1. Nonoliguric acute kidney injury secondary to ATN secondary to cardiorenal syndrome. Creatinine 2.07 on admission and stable at 2.1 today. Unclear as to what her baseline renal function is. No evidence of hydronephrosis noted on renal ultrasound. #2. Hypervolemic hyponatremia. Improving with diuresis. #3. Metabolic acidosis secondary to acute kidney injury. #4. Lower extremity cellulitis maintained on antibiotics. #5. Volume overload. Left-sided pleural effusion present on chest x-ray. #6. Pyuria. Follow-up urine culture. Maintain on antibiotics. #7. Systolic CHF with ejection fraction of 25-30% with moderate pulmonic regurgitation. Plan: I will decrease Lasix to 40 mg IV twice daily. 1200 mL fluid restriction. Maintain oral sodium bicarbonate 1300 mg twice daily. Avoid nephrotoxic agents and hypotensive episodes. Repeat electrolytes in the morning.
--- NOTE | 2017-06-03 09:11 | CT ---
EXAMINATION TYPE: CT brain wo con DATE OF EXAM: 06/03/2017 HISTORY: Delirium CT DLP: 1165 mGycm. Automated Exposure Control for Dose Reduction was Utilized. TECHNIQUE: CT scan of the head is performed without contrast. COMPARISON: CT brain March 16, 2013. FINDINGS: There is no acute intracranial hemorrhage or midline shift identified. There is diffuse v entricular and sulcal prominence consistent with diffuse age-related cerebral atrophy. There is low- attenuation in the periventricular white matter consistent with chronic small vessel ischemic change. There is vascular calcification of distal internal carotid arteries bilaterally. The globes are int act and the visualized sinuses are clear. IMPRESSION: No acute intracranial hemorrhage or midline shift. There is mild to moderate diffuse ag e-related cerebral atrophy and mild chronic small vessel ischemic change redemonstrated without signi ficant change from prior.
[2017-06-03] MEDS: cefTRIAXone IN SWFI 2,000 MG/20 ML SYRINGE IVP SCH (10:44)
[2017-06-03] MEDS: ASPIRIN 325 MG TAB PO SCH (10:44)
[2017-06-03] MEDS: DOXEPIN 25 MG CAP PO SCH (10:45)
[2017-06-03] MEDS: SODIUM BICARBONATE TAB 650 MG TAB PO SCH ×2 (10:46→20:38)
[2017-06-03] MEDS: MORPHINE ORAL SOLN 10 MG/5 ML CUP PO PRN (10:47)
[2017-06-03] MEDS: FUROSEMIDE 10 MG/ML 4 ML VIAL IV SCH ×2 (11:10→20:38)
--- NOTE | 2017-06-03 11:26 | P.PN ---
Subjective Progress Note Date: 06/03/17 Patient doing well. No active bleeding overnight. Compression dressing in place and not saturated. No other complaints Objective - Vital Signs Vital signs: Vital Signs Temp 97 F L 06/03/17 07:55 Pulse 96 06/03/17 07:55 Resp 17 06/03/17 07:55 BP 116/65 06/03/17 07:55 Pulse Ox 96 06/03/17 07:55 Intake & Output 06/02/17 06/03/17 06/03/17 18:59 06:59 18:59 Intake Total 0 150 60 Output Total 50 Balance -50 150 60 Weight 115 kg Intake: Oral 0 150 60 Output: Urine 50 Other: Voiding Method Bedside Commode Indwelling Catheter Bedpan - Constitutional General appearance: Present: cooperative - Gastrointestinal Gastrointestinal Comment(s): Soft nontender nondistended - Integumentary Integumentary Comment(s): Right lower extremity wound hematoma 4 x 3 cm today. Improved. No active bleeding - Psychiatric Psychiatric: Present: A&O x's 3 - Labs CBC & Chem 7: 06/03/17 06:45 06/03/17 06:45 Labs: Abnormal Lab Results - Last 24 Hours (Table) 06/02/17 06/02/17 06/02/17 Range/Units 11:53 11:53 15:38 RBC (3.80-5.40) m/uL Hgb (11.4-16.0) gm/dL Hct (34.0-46.0) % Plt Count (150-450) k/uL Lymphocytes # (1.0-4.8) k/uL APTT 69.8 H (22.0-30.0) sec Sodium (137-145) mmol/L Chloride (98-107) mmol/L BUN (7-17) mg/dL Creatinine (0.52-1.04) mg/dL POC Glucose (mg/dL) (75-99) mg/dL Osmolality 264 L (280-301) mosm/kg Troponin I 0.066 H* (0.000-0.034) ng/mL HDL Cholesterol (40-60) mg/dL Urine Appearance (Clear) Urine Protein (Negative) Urine Blood (Negative) Ur Leukocyte Esterase (Negative) Urine WBC (0-5) /hpf Urine WBC Clumps (None) /hpf Urine Bacteria (None) /hpf 03/29/18 03/29/18 03/29/18 Range/Units 16:19 18:01 19:07 RBC (3.80-5.40) m/uL Hgb (11.4-16.0) gm/dL Hct (34.0-46.0) % Plt Count (150-450) k/uL Lymphocytes # (1.0-4.8) k/uL APTT (22.0-30.0) sec Sodium 125 L (137-145) mmol/L Chloride 92 L (98-107) mmol/L BUN 27 H (7-17) mg/dL Creatinine 2.01 H (0.52-1.04) mg/dL POC Glucose (mg/dL) (75-99) mg/dL Osmolality (280-301) mosm/kg Troponin I 0.052 H* (0.000-0.034) ng/mL HDL Cholesterol (40-60) mg/dL Urine Appearance Turbid H (Clear) Urine Protein 1+ H (Negative) Urine Blood Moderate H (Negative) Ur Leukocyte Esterase Large H (Negative) Urine WBC >182 H (0-5) /hpf Urine WBC Clumps Many H (None) /hpf Urine Bacteria Few H (None) /hpf 06/02/17 06/02/17 06/03/17 Range/Units 19:07 21:43 06:45 RBC 3.46 L (3.80-5.40) m/uL Hgb 10.4 L (11.4-16.0) gm/dL Hct 31.6 L (34.0-46.0) % Plt Count 139 L (150-450) k/uL Lymphocytes # (1.0-4.8) k/uL APTT (22.0-30.0) sec Sodium 126 L (137-145) mmol/L Chloride 92 L (98-107) mmol/L BUN 29 H (7-17) mg/dL Creatinine 2.10 H (0.52-1.04) mg/dL POC Glucose (mg/dL) 100 H (75-99) mg/dL Osmolality (280-301) mosm/kg Troponin I (0.000-0.034) ng/mL HDL Cholesterol 72 H (40-60) mg/dL Urine Appearance (Clear) Urine Protein (Negative) Urine Blood (Negative) Ur Leukocyte Esterase (Negative) Urine WBC (0-5) /hpf Urine WBC Clumps (None) /hpf Urine Bacteria (None) /hpf 06/03/17 Range/Units 06:45 RBC 3.49 L (3.80-5.40) m/uL Hgb 10.1 L (11.4-16.0) gm/dL Hct 32.3 L (34.0-46.0) % Plt Count 137 L (150-450) k/uL Lymphocytes # 0.8 L (1.0-4.8) k/uL APTT (22.0-30.0) sec Sodium (137-145) mmol/L Chloride (98-107) mmol/L BUN (7-17) mg/dL Creatinine (0.52-1.04) mg/dL POC Glucose (mg/dL) (75-99) mg/dL Osmolality (280-301) mosm/kg Troponin I (0.000-0.034) ng/mL HDL Cholesterol (40-60) mg/dL Urine Appearance (Clear) Urine Protein (Negative) Urine Blood (Negative) Ur Leukocyte Esterase (Negative) Urine WBC (0-5) /hpf Urine WBC Clumps (None) /hpf Urine Bacteria (None) /hpf Microbiology - Last 24 Hours (Table) 06/02/17 16:19 Urine Culture - Preliminary Urine,Clean Catch Assessment and Plan Assessment: Right lower extremity laceration and hematoma, A. fib elevated troponins Plan: Patient's hematoma markedly improved overnight with compression. There is no active bleeding at this time. I do not see an indication for acute surgical management, if wound debridement and evacuation hematoma is performed now patient would be left with an open wound and likely require wound VAC therapy. ld prefer to continue with compression dressing and allow the wound to demarcate prior to any surgical intervention if that should be deemed necessary in the future. Patient may follow up in the wound care clinic.
[2017-06-03 11:46] LABS: Glucose,Whole Blood 89 mg/dL (75-99)
--- NOTE | 2017-06-03 14:13 | CDI ---
Last Revision, February 2017 Documentation Clarification Form Date: June 03, 2017 From: Ruth Tan Admit Date: 06/03/2017 11:53:00 AM Patient Name: Shannan Nichole Visit Number: [id number] ATTENTION: The Clinical Documentation Specialists (CDI) and [facility] Coding Staff appreciate your assistance in clarifying documentation. Please respond to the clarification below the line at the bottom and electronically sign. The CDI & [facility] Coding staff will review the response and follow-up if needed. Please note: Queries are made part of the Legal Health Record. If you have any questions, please contact the author of this message via ITS. Dr. Vivek Westbrook, Consult dated 06/02/17 states "Chronic CHF" Progress note dated 06/03/17 states "Systolic CHF" and History/Risk Factors:. gerd, htn, pneumonia, renal disease, cellulitis, hep a Pt came in for leg laceration, found to be in a fib, heart failure Clinical Indicators: BNP: on admission 7230 Echocardiogram Results: EF 25-30% Chest X Ray: cardiomegaly Treatment: Lasix IV monitor labs In your professional opinion, can you please clarify the acuity and type of CHF if known? Systolic Heart Failure: Acute Acute on Chronic Unable to Determine Other, please specify Please continue to document in your progress notes, under the line below and/or in the discharge summary in order to capture severity of illness and risk of mortality. Include clinical findings that support your diagnosis. acute on chronic CHF, systolic dysfunction, EF 25-30% ___ MTDD
--- NOTE | 2017-06-03 14:28 | P.PN ---
Subjective Progress Note Date: 06/03/17 This is a 72-year-old female with history of hypertension who presented to the hospital after experiencing a fall at home, and incurring a laceration to her right leg. In the emergency room she was found to be in atrial fibrillation for which we were consulted. Patient was seen in consultation yesterday by Dr. Carlisle, she continues to be on IV heparin today. The patient is covered we will initiate Eliquis today. She was also noted to have mild abnormality in her troponin likely secondary to renal insufficiency. An echocardiogram with Doppler study was performed which revealed an ejection fraction of 25-30%. Blood pressure 108/57, heart rate in the 70s, respirations 17, 92% on 2 L. White Blood cell count 5.1, hemoglobin 10.1, platelet count 137. Sodium 126, potassium 4.6, BUN 29, creatinine 2.1. We will discontinue the patient's aspirin, if she is covered for Eliquis we'll initiate Eliquis 2-1/ 2 mg twice a day. Patient has been followed by nephrology who is currently managing her Lasix. Patient was on Cozaar at home which is currently on hold because of the renal function. We will start the patient on a low-dose of beta aniket, if renal function improves consider reinitiating arm or a small dose of MARGUERITE inhibitor. Objective - Vital Signs Vital signs: Vital Signs Temp 97.4 F L 06/03/17 11:45 Pulse 75 06/03/17 11:45 Resp 17 06/03/17 11:45 BP 108/57 06/03/17 11:45 Pulse Ox 92 L 06/03/17 11:45 Intake & Output 06/02/17 06/03/17 06/03/17 18:59 06:59 18:59 Intake Total 0 150 460 Output Total 50 Balance -50 150 460 Weight 115 kg Intake: Oral 0 150 460 Output: Urine 50 Other: Voiding Method Bedside Commode Indwelling Catheter Indwelling Catheter Bedpan - Exam PHYSICAL EXAMINATION: HEENT: Head is atraumatic, normocephalic. Pupils equal, round. Neck is supple. There is no elevated jugular venous pressure. HEART EXAMINATION: Heart S1 and S2 irregularly irregular CHEST EXAMINATION: Lungs reveal diminished air entry to bilateral bases. ABDOMEN: Soft, nontender. Bowel sounds are heard. No organomegaly noted. EXTREMITIES:[ 1+ to Doppler peripheral pulses to the lower extremities, bilateral edema and significant discoloration of the skin noted. NEUROLOGIC patient is awake, alert and oriented -3. . - Labs CBC & Chem 7: 06/03/17 06:45 06/03/17 06:45 Labs: Abnormal Lab Results - Last 24 Hours (Table) 06/02/17 06/02/17 06/02/17 Range/Units 15:38 16:19 18:01 RBC (3.80-5.40) m/uL Hgb (11.4-16.0) gm/dL Hct (34.0-46.0) % Plt Count (150-450) k/uL Lymphocytes # (1.0-4.8) k/uL APTT 69.8 H (22.0-30.0) sec Sodium (137-145) mmol/L Chloride (98-107) mmol/L BUN (7-17) mg/dL Creatinine (0.52-1.04) mg/dL POC Glucose (mg/dL) (75-99) mg/dL Troponin I 0.052 H* (0.000-0.034) ng/mL HDL Cholesterol (40-60) mg/dL Urine Appearance Turbid H (Clear) Urine Protein 1+ H (Negative) Urine Blood Moderate H (Negative) Ur Leukocyte Esterase Large H (Negative) Urine WBC >182 H (0-5) /hpf Urine WBC Clumps Many H (None) /hpf Urine Bacteria Few H (None) /hpf 06/02/17 06/02/17 06/02/17 Range/Units 19:07 19:07 21:43 RBC 3.46 L (3.80-5.40) m/uL Hgb 10.4 L (11.4-16.0) gm/dL Hct 31.6 L (34.0-46.0) % Plt Count 139 L (150-450) k/uL Lymphocytes # (1.0-4.8) k/uL APTT (22.0-30.0) sec Sodium 125 L (137-145) mmol/L Chloride 92 L (98-107) mmol/L BUN 27 H (7-17) mg/dL Creatinine 2.01 H (0.52-1.04) mg/dL POC Glucose (mg/dL) 100 H (75-99) mg/dL Troponin I (0.000-0.034) ng/mL HDL Cholesterol (40-60) mg/dL Urine Appearance (Clear) Urine Protein (Negative) Urine Blood (Negative) Ur Leukocyte Esterase (Negative) Urine WBC (0-5) /hpf Urine WBC Clumps (None) /hpf Urine Bacteria (None) /hpf 06/03/17 06/03/17 Range/Units 06:45 06:45 RBC 3.49 L (3.80-5.40) m/uL Hgb 10.1 L (11.4-16.0) gm/dL Hct 32.3 L (34.0-46.0) % Plt Count 137 L (150-450) k/uL Lymphocytes # 0.8 L (1.0-4.8) k/uL APTT (22.0-30.0) sec Sodium 126 L (137-145) mmol/L Chloride 92 L (98-107) mmol/L BUN 29 H (7-17) mg/dL Creatinine 2.10 H (0.52-1.04) mg/dL POC Glucose (mg/dL) (75-99) mg/dL Troponin I (0.000-0.034) ng/mL HDL Cholesterol 72 H (40-60) mg/dL Urine Appearance (Clear) Urine Protein (Negative) Urine Blood (Negative) Ur Leukocyte Esterase (Negative) Urine WBC (0-5) /hpf Urine WBC Clumps (None) /hpf Urine Bacteria (None) /hpf Microbiology - Last 24 Hours (Table) 06/02/17 16:19 Urine Culture - Preliminary Urine,Clean Catch Assessment and Plan Plan: Assessment and plan #1 atrial fibrillation with rapid ventricular response, chronic persistent #2 systolic congestive heart failure acute on chronic #3 hyponatremia #4 acute on chronic renal failure # 5 abnormality in troponin, likely secondary to renal function #6 hypertension #7 bilateral cellulitis #8 cardiomyopathy, type unknown Plan From cardiology's perspective, we will add a small dose of beta aniket to her medication regime. Once the renal function stabilizes consider resuming angiotensin aniket or MARGUERITE inhibitor. When the patient is stable, consider stress testing as an outpatient. DNP note has been reviewed, I agree with a documented findings and plan of care. Patient was seen and examined.
[2017-06-03 14:54] LABS: Glucose,Whole Blood 175 mg/dL (75-99)
[2017-06-03 17:02] LABS: Glucose,Whole Blood 95 mg/dL (75-99)
[2017-06-03] MEDS: predniSONE 20 MG TAB PO SCH (17:55)
--- NOTE | 2017-06-03 19:16 | P.CNNES ---
History of Present Illness Consult date: 06/03/17 Reason for Consult: Patient with altered mental status and confusion. History of Present Illness: This patient is a 72-year-old right-handed white female who was admitted to Hospital with symptoms of having a recent fall at home. Patient states she fell and struck her right leg and sustained a laceration. She does have history of bilateral cellulitis in both legs. She was brought into the emergency room where she was found to have evidence of new onset atrial fibrillation. She was started on IV heparin protocol. She underwent a computed tomography scan of the brain which revealed no acute intracranial hemorrhage or midline shift. There was moderate diffuse age-related cerebral atrophy and chronic small vessel ischemic changes noted. Cardiology did see the patient and has recommended IV heparin protocol which will be converted to Eloquis for long-term anticoagulation. The patient was seen by Dr. Altman this morning and showed signs of acute confusion. The confusional state does seem to shown improvement from this morning. As noted CAT scan of the brain was negative for any acute changes. She did have evidence of metabolic abnormalities yesterday in the emergency room as well with a low serum sodium level of 126. She was treated for hyponatremia. Her current symptoms suggest possibility of metabolic encephalopathy producing her initial memory difficulties. She is now seemingly showing some improvement. She is also being evaluated for acute renal failure by nephrology. Patient does continue to complain of itching sensation over much of her lower extremities and also on her back. Exact etiology of this is still unclear. We would recommended nephrology for further evaluation of renal failure and possibility of link to the renal functions producing some of the condition of itching. Due to her complex medical history and multiple medications this could also be contributing to acute encephalopathy for the patient. For these reasons neurology is now been consulted for further evaluation and recommendations. Review of Systems Constitutional: Denies chills, Denies fever Eyes: denies blurred vision, denies pain Ears, nose, mouth and throat: Denies headache, Denies sore throat Cardiovascular: Denies chest pain, Denies shortness of breath Respiratory: Denies cough Gastrointestinal: Denies abdominal pain, Denies diarrhea, Denies nausea, Denies vomiting Genitourinary: Denies dysuria, Denies hematuria Musculoskeletal: Denies myalgias Integumentary: Denies pruritus, Denies rash Neurological: Reports change in mentation, Reports confusion, Reports memory loss, Denies numbness, Denies weakness Psychiatric: Reports disorientation, Reports sleep disturbances Endocrine: Denies fatigue, Denies weight change Past Medical History Past Medical History: GERD/Reflux, Hypertension, Pneumonia, Renal Disease Additional Past Medical History / Comment(s): pt somewhat a poor historian- assisted with admission hx.. 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 History of Any Multi-Drug Resistant Organisms: None Reported Past Surgical History: Appendectomy Additional Past Surgical History / Comment(s): Hip replacement right hip. sx for ecopic pregnancies x2 -both fallopian tubes removed and 1 ovary (not sure which one). Past Anesthesia/Blood Transfusion Reactions: Motion Sickness Additional Past Anesthesia/Blood Transfusion Reaction / Comment(s): clausterphobia Smoking Status: Former smoker - Past Family History Mother Family Medical History: Renal Disease Father Family Medical History: CVA/TIA, Hyperlipidemia, Hypertension Additional Family Medical History / Comment(s): from stroke age 45 Medications and Allergies Home Medications Medication Instructions Recorded Confirmed Type Bumetanide 1 mg PO DAILY 06/02/17 06/02/17 History Doxepin [SINEquan] 25 mg PO DAILY 06/02/17 06/02/17 History HYDROcodone/APAP 7.5-325MG [[place] 1 tab PO Q6HR PRN 06/02/17 06/02/17 History 7.5-325] Losartan [Cozaar] 100 mg PO DAILY 06/02/17 06/02/17 History Allergies Allergy/AdvReac Type Severity Reaction Status Date / Time Penicillins Allergy Severe Rash/Hives Verified 06/02/17 08:04 nickel Allergy Mild Rash/Hives Verified 06/02/17 08:04 Physical Examination - Vital Signs Vital Signs: Vital Signs Temp Pulse Pulse Pulse Resp BP Pulse Ox 06/03/17 16:15 96.8 F L 87 22 113/52 99 06/03/17 16:00 72 75 98 17 06/03/17 11:45 97.4 F L 75 17 108/57 92 L 06/03/17 11:30 72 96 98 17 06/03/17 08:33 98 98 98 18 06/03/17 08:00 72 96 98 17 06/03/17 07:55 97 F L 96 17 116/65 96 06/03/17 03:51 98 13 06/03/17 03:49 96.9 F L 72 98 13 112/58 95 06/02/17 23:37 92 20 06/02/17 23:34 96.8 F L 65 92 15 130/69 95 06/02/17 20:00 96.8 F L 78 91 20 115/69 98 Intake and Output 06/03/17 06/03/17 06/03/17 06:59 14:59 22:59 Intake Total 150 460 200 Output Total 840 Balance 150 460 -640 Intake: Oral 150 460 200 Output: Urine 840 Other: Voiding Method Indwelling Catheter Indwelling Catheter Indwelling Catheter Weight 115 kg - Constitutional General appearance: average body habitus, cooperative - EENT EENT: PERRL, mucous membranes moist - Respiratory Respiratory: lungs clear, normal breath sounds - Cardiovascular Cardiovascular: regular rate, normal S1, normal S2 Extremities: no peripheral edema bilaterally - Gastrointestinal Gastrointestinal: normoactive bowel sounds - Integumentary Integumentary: normal - Neurologic Cranial nerve examination: PERRL, EOMI, VFF, V1/V2/V3 grossly intact, face symmetric, intact gag reflex, intact corneal reflex, normal palatal elevation Speech examination: intact Sensorimotor examination: intact Motor examination - right side: 4/5: biceps, triceps, wrist flexion, wrist extension, farm loan inspector, hip flexors, knee extensors, dorsiflexion, toe extension (EHL) , plantarflexion Motor examination - left side: 4/5: biceps, triceps, wrist flexion, wrist extension, farm loan inspector, hip flexors, knee extensors, dorsiflexion, toe extension (EHL) , plantarflexion Detailed sensory examination: intact Reflex and gait examination: intact Reflexes: 1+: ankle, bicep, knee, tricep - Musculoskeletal Musculoskeletal: no pain - Psychiatric Psychiatric: mood/affect appropriate, cooperative Results - Laboratory Findings CBC and BMP: 06/03/17 06:45 06/03/17 06:45 Abnormal Lab Findings: Abnormal Labs 06/02/17 06/02/17 06/02/17 05:55 05:55 05:55 RBC Hgb Hct Plt Count Lymphocytes # PT 12.1 H INR 1.3 H APTT Sodium 124 L Chloride 94 L Carbon Dioxide 17 L BUN 24 H Creatinine 2.07 H POC Glucose (mg/dL) Osmolality Total Bilirubin 1.5 H AST 39 H Troponin I 0.065 H* Total Protein 6.1 L Albumin 3.3 L HDL Cholesterol Urine Appearance Urine Protein Urine Blood Ur Leukocyte Esterase Urine WBC Urine WBC Clumps Urine Bacteria 06/02/17 06/02/17 06/02/17 11:53 11:53 15:38 RBC Hgb Hct Plt Count Lymphocytes # PT INR APTT 69.8 H Sodium Chloride Carbon Dioxide BUN Creatinine POC Glucose (mg/dL) Osmolality 264 L Total Bilirubin AST Troponin I 0.066 H* Total Protein Albumin HDL Cholesterol Urine Appearance Urine Protein Urine Blood Ur Leukocyte Esterase Urine WBC Urine WBC Clumps Urine Bacteria 06/02/17 06/02/17 06/02/17 16:19 18:01 19:07 RBC Hgb Hct Plt Count Lymphocytes # PT INR APTT Sodium 125 L Chloride 92 L Carbon Dioxide BUN 27 H Creatinine 2.01 H POC Glucose (mg/dL) Osmolality Total Bilirubin AST Troponin I 0.052 H* Total Protein Albumin HDL Cholesterol Urine Appearance Turbid H Urine Protein 1+ H Urine Blood Moderate H Ur Leukocyte Esterase Large H Urine WBC >182 H Urine WBC Clumps Many H Urine Bacteria Few H 06/02/17 06/02/17 06/03/17 19:07 21:43 06:45 RBC 3.46 L Hgb 10.4 L Hct 31.6 L Plt Count 139 L Lymphocytes # PT INR APTT Sodium 126 L Chloride 92 L Carbon Dioxide BUN 29 H Creatinine 2.10 H POC Glucose (mg/dL) 100 H Osmolality Total Bilirubin AST Troponin I Total Protein Albumin HDL Cholesterol 72 H Urine Appearance Urine Protein Urine Blood Ur Leukocyte Esterase Urine WBC Urine WBC Clumps Urine Bacteria 06/03/17 06/03/17 06:45 14:39 RBC 3.49 L Hgb 10.1 L Hct 32.3 L Plt Count 137 L Lymphocytes # 0.8 L PT INR APTT Sodium Chloride Carbon Dioxide BUN Creatinine POC Glucose (mg/dL) 175 H Osmolality Total Bilirubin AST Troponin I Total Protein Albumin HDL Cholesterol Urine Appearance Urine Protein Urine Blood Ur Leukocyte Esterase Urine WBC Urine WBC Clumps Urine Bacteria Assessment and Plan (1) Acute encephalopathy Current Visit: Yes Status: Acute Code(s): G93.40 - ENCEPHALOPATHY, UNSPECIFIED SNOMED Code(s): 69508759 (2) Atrial fibrillation Current Visit: Yes Status: Acute Code(s): I48.91 - UNSPECIFIED ATRIAL FIBRILLATION SNOMED Code(s): 55598629 (3) Renal failure Current Visit: Yes Status: Acute Code(s): N19 - UNSPECIFIED KIDNEY FAILURE SNOMED Code(s): 90334784 (4) Weakness Current Visit: Yes Status: Acute Code(s): R53.1 - WEAKNESS SNOMED Code(s) : 12619007 Plan: This patient is a 72-year-old right-handed white female being evaluated for episode of acute confusional state and disorientation. Apparently this was noted this morning after she was admitted to hospital yesterday for sustaining a fall and new onset of atrial fibrillation. She was seen by cardiology and is now been placed on IV heparin protocol and is to be anticoagulated with Eloquis for long-term anticoagulation. Her computed tomography scan of the brain failed to reveal any acute changes. Her mental status is showing some improvement but she does have metabolic abnormalities including hyponatremia that is contributing to the confusion. Serum sodium today was 125. Would recommend nephrology consultation for further assessment and recommendations regarding the hyponatremia. Apparently this morning she did show signs of mental status changes and mild delirium. This has since subsequently resolved. We are recommending close monitoring for her overall mental status over the next 24 hours. We will continue to follow her progress closely and will reevaluate her again tomorrow terms of her cognitive functioning. Overall prognosis at this time remains guarded. Time with Patient: Greater than 30
[2017-06-03] MEDS: ATORVASTATIN 40 MG TAB PO SCH (20:38)
[2017-06-03 21:02] LABS: Glucose,Whole Blood 128 mg/dL (75-99)
[2017-06-04] MEDS: QUEtiapine 25 MG TAB PO SCH ×2 (01:49→20:08)
[2017-06-04 02:00] LABS: HCT 30.8 % (34.0-46.0); HGB 10.3 gm/dL (11.4-16.0); MCH 30.4 pg (25.0-35.0); MCHC 33.4 g/dL (31.0-37.0); MCV 90.8 fL (80.0-100.0); Mean Platelet Volume 7.6; Platelet Count 119 k/uL (150-450); RBC 3.39 m/uL (3.80-5.40); RDW 13.4 % (11.5-15.5); WBC 3.3 k/uL (3.8-10.6)
[2017-06-04 02:18] LABS: Albumin 3.4 g/dL (3.5-5.0); Calcium 8.8 mg/dL (8.4-10.2); Magnesium 1.4 mg/dL (1.6-2.3); Potassium 4.9 mmol/L (3.5-5.1); Total Bilirubin 1.1 mg/dL (0.2-1.3); Total Protein 6.3 g/dL (6.3-8.2)
[2017-06-04] MEDS ORDERED: Magnesium Replacement Protocol 1 EACH MISC MISCELLANE PRN (05:45)
--- NOTE | 2017-06-04 06:05 | XR ---
EXAMINATION TYPE: XR chest 1V portable DATE OF EXAM: 06/04/2017 HISTORY: increasing sob . REFERENCE: Previous study dated 06/02/2017. FINDINGS: The heart is enlarged. There is a left-sided effusion. There is mild vascular congestion wi thout bethany edema. I suspect a smaller right effusion. IMPRESSION: 1. CARDIOMEGALY. 2. BILATERAL EFFUSIONS, GREATER ON THE LEFT THAN THE RIGHT. 3. VASCULAR CONGESTION. I COULD NOT EXCLUDE A DEGREE OF PULMONARY EDEMA.
[2017-06-04 06:17] LABS: Glucose,Whole Blood 162 mg/dL (75-99)
[2017-06-04] MEDS: MAGNESIUM SULFATE-D5W PMX 1 GM in DEXTROSE/WATER 1 100ML.BAG IVPB SCH ×3 (06:22→10:33)
[2017-06-04] MEDS: ASPIRIN 325 MG TAB PO SCH (07:55)
[2017-06-04] MEDS: DOXEPIN 25 MG CAP PO SCH (07:56)
[2017-06-04] MEDS: SODIUM BICARBONATE TAB 650 MG TAB PO SCH ×2 (07:56→20:08)
[2017-06-04] MEDS: FUROSEMIDE 10 MG/ML 4 ML VIAL IV SCH ×2 (07:56→20:08)
[2017-06-04] MEDS: predniSONE 20 MG TAB PO SCH (07:56)
[2017-06-04] MEDS: cefTRIAXone IN SWFI 2,000 MG/20 ML SYRINGE IVP SCH (07:59)
[2017-06-04] MEDS ORDERED: TOLVAPTAN 15 MG 1/2 TABLET PO ONE (09:45)
--- NOTE | 2017-06-04 09:47 | P.PN ---
Subjective Progress Note Date: 06/04/17 (Nephrology) Seen and examined for the follow-up of acute kidney injury/chronic kidney disease. She is still short of breath. Objective - Vital Signs Vital signs: Vital Signs Temp 96.8 F L 06/04/17 08:00 Pulse 115 H 06/04/17 08:00 Resp 18 06/04/17 08:00 BP 142/85 06/04/17 08:00 Pulse Ox 97 06/04/17 08:00 Intake & Output 06/03/17 06/04/17 06/04/17 18:59 06:59 18:59 Intake Total 660 Output Total 840 880 Balance -180 -880 Weight 112 kg Intake: Oral 660 Output: Urine 840 880 Other: Voiding Method Indwelling Catheter Indwelling Catheter Diaper - Exam Lying in bed no acute distress S1 and S2 heard Decreased lungs sounds present Abdomen distended Edema - Labs CBC & Chem 7: 06/04/17 01:45 06/04/17 01:45 Labs: Abnormal Lab Results - Last 24 Hours (Table) 06/03/17 06/03/17 06/04/17 Range/Units 14:39 21:01 01:45 WBC 3.3 L (3.8-10.6) k/uL RBC 3.39 L (3.80-5.40) m/uL Hgb 10.3 L (11.4-16.0) gm/dL Hct 30.8 L (34.0-46.0) % Plt Count 119 L (150-450) k/uL Sodium (137-145) mmol/L Chloride (98-107) mmol/L Carbon Dioxide (22-30) mmol/L BUN (7-17) mg/dL Creatinine (0.52-1.04) mg/dL Glucose (74-99) mg/dL POC Glucose (mg/dL) 175 H 128 H (75-99) mg/dL Magnesium (1.6-2.3) mg/dL Albumin (3.5-5.0) g/dL 06/04/17 06/04/17 Range/Units 01:45 06:16 WBC (3.8-10.6) k/uL RBC (3.80-5.40) m/uL Hgb (11.4-16.0) gm/dL Hct (34.0-46.0) % Plt Count (150-450) k/uL Sodium 126 L (137-145) mmol/L Chloride 92 L (98-107) mmol/L Carbon Dioxide 19 L (22-30) mmol/L BUN 29 H (7-17) mg/dL Creatinine 2.10 H (0.52-1.04) mg/dL Glucose 181 H (74-99) mg/dL POC Glucose (mg/dL) 162 H (75-99) mg/dL Magnesium 1.4 L (1.6-2.3) mg/dL Albumin 3.4 L (3.5-5.0) g/dL Microbiology - Last 24 Hours (Table) 06/02/17 16:19 Urine Culture - Preliminary Urine,Clean Catch Gram Neg Bacilli Assessment and Plan Assessment: Impression: #1 nonoliguric acute kidney injury secondary to ATN and cardiorenal syndrome. Creatinine stable #2 suspect chronic kidney disease unknown baseline creatinine #3 hypervolemic hyponatremia #4 volume overload with pulmonary effusion and edema #5 systolic CHF with EF of 25%. Recommendations: #1 currently on Lasix 40 mg IV twice a day continue with the current dose. #2 given a dose of Tolvaptan 15 mg once for aqua uresis. #3 consider thoracentesis if the pleural effusion is significant. #4 repeat labs in the morning.
[2017-06-04 12:08] LABS: Glucose,Whole Blood 166 mg/dL (75-99)
[2017-06-04 17:06] LABS: Glucose,Whole Blood 166 mg/dL (75-99)
--- NOTE | 2017-06-04 18:05 | PN ---
PROGRESS NOTE DATE OF SERVICE: 06/04/2017 I am covering for Dr. Altman. This 72-year-old woman was admitted with multiple medical problems and change in mental status, also had some contusion of the lower legs and cellulitis also. The patient also had renal failure, possibly secondary to cardiorenal syndrome. The patient also had atrial fibrillation. Also multiple consultants are following the patient closely. PAST MEDICAL HISTORY: Reviewed. REVIEW OF SYSTEMS: CARDIOVASCULAR: No angina. RESPIRATORY: As mentioned earlier. GI: No nausea. : As mentioned earlier. NERVOUS SYSTEM: Mild diffuse weakness. CURRENT MEDICATIONS: 1. [place] 7.5 q.6h p.r.n. 2. Aspirin 325 mg daily. 3. Lipitor 40 mg. 4. Kefzol 2 g IV q.8h. 5. Doxepin 25 mg. 6. Lasix 40 mg IV b.i.d. 7. Magnesium. 8. Sulfa. 10.Prednisone 40 daily. 11.Seroquel 25 mg daily. 12.Sodium bicarb mg p.o. b.i.d. PHYSICAL EXAM: Patient is alert, oriented x3. Pulse 115, blood pressure 142/85, respiration 18 , temp 96.8, pulse ox 97% on 2 L. HEENT: Conjunctivae normal. Oral mucosa moist. NECK: No jugular venous distention. No carotid bruit. No lymph node enlargement. CARDIOVASCULAR: S1, S2. No S3, no S4 RESPIRATORY: Breath sounds diminished in the bases. A few scattered rhonchi and crackles. ABDOMEN: Soft, nontender. LEGS: Bilateral leg cellulitis, edema, erythema and as well as also present. NERVOUS SYSTEM: No focal deficits. LAB STUDIES: At this time shows labs are WBC 3.3, hemoglobin is 10, sodium 126, creatinine is 2.10. ASSESSMENT: 1. Bilateral leg cellulitis. 2. Change in mental status, metabolic encephalopathy multifactorial. 3. Acute on chronic renal failure with possibly cardiorenal syndrome. 4. Congestive heart failure with chronic systolic dysfunction ejection fraction 20%. 5. Atrial fibrillation. 6. Elevated troponin, possibly secondary to renal failure. 7. Hypertension. 8. Cardiomyopathy. 9. Hyponatremia. RECOMMENDATIONS AND DISCUSSION: In this 72-year-old woman who presented with multiple complex medical issues, we will monitor the patient closely. Continue the current management and symptomatic treatment. Cautious diuretics and follow closely with Nephrology and Cardiology. Prognosis guarded because of multiple complex medical issues. I would recommend Kefzol and Infectious Disease evaluation also. Cultures will be obtained. Otherwise, prognosis guarded because of the multiple complex medical issues. Further recommendations to follow. MMODL / IJN: [id number] / MTDD
[2017-06-04] MEDS: ceFAZolin IN SWFI 2 GM/20 ML SYRINGE IVP SCH ×2 (19:02→23:04)
[2017-06-04] MEDS: ATORVASTATIN 40 MG TAB PO SCH (20:08)
[2017-06-04 20:51] LABS: Glucose,Whole Blood 168 mg/dL (75-99)
[2017-06-04] MEDS ORDERED: QUEtiapine 25 MG TAB PO SCH (21:00)
--- NOTE | 2017-06-04 23:00 | P.PN ---
Subjective Progress Note Date: 06/04/17 This patient is a 72-year-old female who was evaluated yesterday for neurological assessment following altered mental status. Patient was found to have evidence suggesting a acute encephalopathy possibly metabolic in origin. She does have a history of acute kidney injury in the past. Her serum creatinine today is 2.10. She was advised to have EEG study done today but could not complete the study and it was canceled. She continues to show slight improvement with her mental status today. Her computed tomography scan of the brain performed yesterday failed to reveal any acute intracranial changes. There is mild to moderate diffuse age-related atrophy and chronic small vessel ischemic changes noted. This patient continues to show evidence of possible metabolic encephalopathy. We will await further recommendations from nephrology. Patient does seem to follow simple commands today. Her was at bedside and states that she still seems to have episodes of confusion. We will continue close neurological follow-up for the patient during this admission. Objective - Vital Signs Vital signs: Vital Signs Temp 97.3 F L 06/04/17 20:00 Pulse 105 H 06/04/17 20:00 Resp 18 06/04/17 20:00 BP 155/84 06/04/17 20:00 Pulse Ox 100 06/04/17 20:00 Intake & Output 06/04/17 06/04/17 06/05/17 06:59 18:59 06:59 Intake Total 200 Output Total 880 650 Balance -880 -450 Weight 112 kg Intake: Intake, IV Titration 200 Amount Magnesium Sulfate-D5w Pmx 200 1 gm In Dextrose/Water 1 100ml.bag @ 100 mls/hr IVPB Q1H [facility] Rx#: [id number] Output: Urine 880 650 Other: Voiding Method Indwelling Catheter Toilet Toilet - Exam Physical examination: PHYSICAL EXAMINATION: Patient is resting comfortably in bed. VITAL SIGNS: Blood pressure is [143/69]. Heart rate is [90]. Respiration is [18] . Temperature is [97.0]. HEENT: Head is atraumatic, neck is supple, there were no carotid bruits. CHEST: Lungs are clear to auscultation and percussion. CARDIAC: S1, S2 normal rate and rhythm. There is no murmur. ABDOMEN: Soft and nontender. Bowel sounds are present. EXTREMITIES: There is no pedal edema. Peripheral pulses are present. Neurological examination: This patient has a nonfocal neurological examination today. - Labs CBC & Chem 7: 06/04/17 01:45 06/04/17 01:45 Labs: Abnormal Lab Results - Last 24 Hours (Table) 06/04/17 06/04/17 06/04/17 Range/Units 01:45 01:45 06:16 WBC 3.3 L (3.8-10.6) k/uL RBC 3.39 L (3.80-5.40) m/uL Hgb 10.3 L (11.4-16.0) gm/dL Hct 30.8 L (34.0-46.0) % Plt Count 119 L (150-450) k/uL Sodium 126 L (137-145) mmol/L Chloride 92 L (98-107) mmol/L Carbon Dioxide 19 L (22-30) mmol/L BUN 29 H (7-17) mg/dL Creatinine 2.10 H (0.52-1.04) mg/dL Glucose 181 H (74-99) mg/dL POC Glucose (mg/dL) 162 H (75-99) mg/dL Magnesium 1.4 L (1.6-2.3) mg/dL Albumin 3.4 L (3.5-5.0) g/dL 06/04/17 06/04/17 06/04/17 Range/Units 11:53 17:01 20:44 WBC (3.8-10.6) k/uL RBC (3.80-5.40) m/uL Hgb (11.4-16.0) gm/dL Hct (34.0-46.0) % Plt Count (150-450) k/uL Sodium (137-145) mmol/L Chloride (98-107) mmol/L Carbon Dioxide (22-30) mmol/L BUN (7-17) mg/dL Creatinine (0.52-1.04) mg/dL Glucose (74-99) mg/dL POC Glucose (mg/dL) 166 H 166 H 168 H (75-99) mg/dL Magnesium (1.6-2.3) mg/dL Albumin (3.5-5.0) g/dL Microbiology - Last 24 Hours (Table) 06/02/17 16:19 Urine Culture - Preliminary Urine,Clean Catch Gram Neg Bacilli Assessment and Plan (1) Acute encephalopathy Current Visit: Yes Status: Acute Code(s): G93.40 - ENCEPHALOPATHY, UNSPECIFIED SNOMED Code(s): 45913196 (2) Atrial fibrillation Current Visit: Yes Status: Acute Code(s): I48.91 - UNSPECIFIED ATRIAL FIBRILLATION SNOMED Code(s): 37711759 (3) Renal failure Current Visit: Yes Status: Acute Code(s): N19 - UNSPECIFIED KIDNEY FAILURE SNOMED Code(s): 00052861 (4) Weakness Current Visit: Yes Status: Acute Code(s): R53.1 - WEAKNESS SNOMED Code(s) : 44925313 Plan: This patient is a 72-year-old female who is being evaluated for altered mental status and acute encephalopathy. She was unable to complete a routine EEG today due to anxiety and panic attack symptoms. This was canceled today. She is being followed closely for acute renal failure in her serum creatinine today is 2.10. She does have history of underlying cardiomyopathy and cardiology is monitoring her condition closely. When the patient is stable she may require a stress test as outpatient. The patient is slowly showing slight improvement with mental status. We will attempt to obtain a EEG early next week for further assessment. Would continue current treatment plans for this patient including treatment of underlying renal failure. Overall prognosis at this time remains guarded.
[2017-06-05 06:14] LABS: Glucose,Whole Blood 139 mg/dL (75-99)
[2017-06-05 06:22] LABS: Calcium 9.1 mg/dL (8.4-10.2); Magnesium 1.9 mg/dL (1.6-2.3); Potassium 4.6 mmol/L (3.5-5.1)
--- NOTE | 2017-06-05 08:53 | P.PN ---
Subjective Progress Note Date: 06/05/17 Seen and examined for the follow-up of acute kidney injury/chronic kidney disease. Sitting at the edge of the bed. Feels better shortness of breath decreased. Objective - Vital Signs Vital signs: Vital Signs Temp 97.2 F L 06/05/17 04:00 Pulse 95 06/05/17 04:00 Resp 18 06/05/17 04:00 BP 125/81 06/05/17 04:00 Pulse Ox 99 06/05/17 08:34 Intake & Output 06/04/17 06/05/17 06/05/17 18:59 06:59 18:59 Intake Total 200 10 Output Total 650 Balance -450 10 Intake: IV 10 0.9 10 Intake, IV Titration 200 Amount Magnesium Sulfate-D5w Pmx 200 1 gm In Dextrose/Water 1 100ml.bag @ 100 mls/hr IVPB Q1H [facility] Rx#: [id number] Output: Urine 650 Other: Voiding Method Toilet Toilet - Exam Lying in bed no acute distress S1 and S2 heard Decreased lungs sounds present Abdomen distended Edema - Labs CBC & Chem 7: 06/04/17 01:45 06/05/17 05:45 Labs: Abnormal Lab Results - Last 24 Hours (Table) 06/04/17 06/04/17 06/04/17 Range/Units 11:53 17:01 20:44 Sodium (137-145) mmol/L Chloride (98-107) mmol/L BUN (7-17) mg/dL Creatinine (0.52-1.04) mg/dL Glucose (74-99) mg/dL POC Glucose (mg/dL) 166 H 166 H 168 H (75-99) mg/dL 06/05/17 06/05/17 Range/Units 05:45 06:10 Sodium 130 L (137-145) mmol/L Chloride 92 L (98-107) mmol/L BUN 33 H (7-17) mg/dL Creatinine 1.90 H (0.52-1.04) mg/dL Glucose 133 H (74-99) mg/dL POC Glucose (mg/dL) 139 H (75-99) mg/dL Microbiology - Last 24 Hours (Table) 06/04/17 18:34 Gram Stain - Preliminary Leg - Right Wound Culture - Preliminary 06/02/17 16:19 Urine Culture - Final Urine,Clean Catch Klebsiella pneumoniae Assessment and Plan Assessment: Impression: #1 nonoliguric acute kidney injury secondary to ATN and cardiorenal syndrome. Creatinine stable #2 suspect chronic kidney disease unknown baseline creatinine #3 hypervolemic hyponatremia #4 volume overload with pulmonary effusion and edema #5 systolic CHF with EF of 25%. Recommendations: #1 currently on Lasix 40 mg IV twice a day continue with the current dose. #2 status post 1 dose of Tolvaptan 15 mg yesterday for aqua uresis. Sodium better. #3 consider thoracentesis if the pleural effusion is significant. #4 repeat labs in the morning.
[2017-06-05] MEDS: ASPIRIN 325 MG TAB PO SCH (09:59)
[2017-06-05] MEDS: predniSONE 20 MG TAB PO SCH (09:59)
[2017-06-05] MEDS: FUROSEMIDE 10 MG/ML 4 ML VIAL IV SCH ×2 (09:59→20:39)
[2017-06-05] MEDS: SODIUM BICARBONATE TAB 650 MG TAB PO SCH ×2 (09:59→20:39)
[2017-06-05] MEDS: DOXEPIN 25 MG CAP PO SCH (09:59)
[2017-06-05] MEDS: ceFAZolin IN SWFI 2 GM/20 ML SYRINGE IVP SCH ×2 (10:16→16:25)
[2017-06-05 12:33] LABS: Glucose,Whole Blood 132 mg/dL (75-99)
--- NOTE | 2017-06-05 15:47 | P.PN ---
Subjective Progress Note Date: 06/05/17 Principal diagnosis: Acute metabolic encephalopathy Atrial fibrillation with rapid ventricular rate This is a 72-year-old female with history of hypertension who presented to the hospital after experiencing a fall at home, and incurring a laceration to her right leg. Patient was found to have atrial fibrillation with a rapid ventricular rate. Currently rate is controlled and was started on anticoagulation. 2-D echocardiography showed ejection fraction 25-30%. Patient also having acute on chronic kidney disease and suspected cardiorenal. Nephrology and cardiology is following. 06/05/2017 Patient denied any complaints of chest pain or shortness of breath. Patient says that she is very concerned about her renal function. Otherwise patient seems to be confused. No fever no chills. Creatinine level improved to 1.9 today. Patient wants to be discharged home today. Complete review of systems could not be obtained from the patient. Discussed with her at bedside in detail. Active Medications Generic Name Dose Route Start Last Admin Trade Name Freq PRN Reason Stop Dose Admin Hydrocodone Bitart/Acetaminophen 1 each 06/02/17 08:21 06/02/17 18:29 [place] 7.5-325 PO 1 each Q6HR PRN Administration Pain Aspirin 325 mg 06/03/17 09:00 06/05/17 09:59 Aspirin PO 325 mg DAILY CJ Administration Atorvastatin Calcium 40 mg 06/02/17 21:00 06/04/17 20:08 Lipitor PO Not Given HS CJ Cefazolin Sodium 2 gm 06/04/17 16:30 06/05/17 10:16 Kefzol IVP 2 gm Q8HR CJ Administration Doxepin HCl 25 mg 06/02/17 09:00 06/05/17 09:59 [place] PO 25 mg DAILY CJ Administration Furosemide 40 mg 06/03/17 09:00 06/05/17 09:59 Lasix IV 40 mg Q12HR CJ Administration Miscellaneous Information 1 each 06/04/17 05:45 Magnesium Per Protocol MISCELLANE DAILY PRN Per Protocol Protocol Morphine Sulfate 6 mg 06/02/17 08:14 06/03/17 10:47 Morphine Oral [place] 2mg/Ml PO 6 mg Q5M PRN Administration Chest Pain Nitroglycerin 0.4 mg 06/02/17 08:14 Nitrostat SUBLINGUAL Q5M PRN Chest Pain Prednisone 40 mg 06/03/17 17:30 06/05/17 09:59 PO 06/06/17 09:01 40 mg DAILY CJ Administration Quetiapine Fumarate 25 mg 06/04/17 01:33 06/04/17 20:08 Seroquel PO 25 mg HS CJ Administration Sodium Bicarbonate 1,300 mg 06/02/17 11:45 06/05/17 09:59 Sodium Bicarbonate Tab PO 1,300 mg BID CJ Administration Objective - Vital Signs Vital signs: Vital Signs Temp 96.9 F L 06/05/17 08:00 Pulse 82 06/05/17 12:00 Resp 17 06/05/17 12:00 BP 145/86 06/05/17 12:00 Pulse Ox 93 L 06/05/17 12:00 Intake & Output 06/04/17 06/05/17 06/05/17 18:59 06:59 18:59 Intake Total 200 10 240 Output Total 650 300 Balance -450 10 -60 Intake: IV 10 0.9 10 Intake, IV Titration 200 Amount Magnesium Sulfate-D5w Pmx 200 1 gm In Dextrose/Water 1 100ml.bag @ 100 mls/hr IVPB Q1H [facility] Rx#: [id number] Oral 240 Output: Urine 650 300 Other: Voiding Method Toilet Toilet Bedside Commode - Exam PHYSICAL EXAMINATION: Patient is lying in the bed comfortably, no acute distress, awake alert and oriented. Confused. HEENT: Normocephalic. Neck is supple. Pupils reactive. Nostrils clear. Oral cavity is moist. Ears reveal no drainage. Neck reveals no JVD, carotid bruits, or thyromegaly. CHEST EXAMINATION: Trachea is central. Symmetrical expansion. Lung rodriguez clear to auscultation and percussion. CARDIAC: Normal S1, S2 with no gallops. No murmurs. Irregularly irregular rhythm ABDOMEN: Soft. Bowel sounds normal. No organomegaly. No abdominal bruits. Extremities: 2+ edema with dark discoloration of lower extremities. No clubbing or cyanosis Neurologically awake, alert, oriented x3 with well-coordinated movements. No focal deficits noted Skin: No rash or skin lesions. Psychiatric: Coperative. Could not be assessed completely Musculoskeletal: No joint swelling or deformity. Normal range of motion. - Labs CBC & Chem 7: 06/04/17 01:45 06/05/17 05:45 Labs: Abnormal Lab Results - Last 24 Hours (Table) 06/04/17 06/04/17 06/05/17 Range/Units 17:01 20:44 05:45 Sodium 130 L (137-145) mmol/L Chloride 92 L (98-107) mmol/L BUN 33 H (7-17) mg/dL Creatinine 1.90 H (0.52-1.04) mg/dL Glucose 133 H (74-99) mg/dL POC Glucose (mg/dL) 166 H 168 H (75-99) mg/dL 06/05/17 06/05/17 Range/Units 06:10 12:06 Sodium (137-145) mmol/L Chloride (98-107) mmol/L BUN (7-17) mg/dL Creatinine (0.52-1.04) mg/dL Glucose (74-99) mg/dL POC Glucose (mg/dL) 139 H 132 H (75-99) mg/dL Microbiology - Last 24 Hours (Table) 06/04/17 18:34 Gram Stain - Preliminary Leg - Right Wound Culture - Preliminary 06/02/17 16:19 Urine Culture - Final Urine,Clean Catch Klebsiella pneumoniae Assessment and Plan Assessment: Altered mental status due to acute metabolic encephalopathy. Multifactorial Acute on chronic kidney disease. Baseline creatinine not known. Secondary to ATN and possible cardiorenal Hypovolemic hyponatremia Acute on chronic CHF systolic dysfunction ejection fraction 20-25% Chronic persistent atrial fibrillation Elevated troponin level likely due to renal failure Hypertension Cardiomyopathy Bilateral lower extremities cellulitis Plan: Patient will be continued on Lasix and follow-up renal function. Sodium level is improving to 130 today. Cardiology and neurology and nephrology is following. Patient will be continued on antibiotics in the form of cefazolin. We'll follow up culture reports and further recommendations based on the clinical course. Patient does have multiple medical problems and complex issues. Prognosis is guarded. Time with Patient: Greater than 30
[2017-06-05 17:49] LABS: Glucose,Whole Blood 158 mg/dL (75-99)
--- NOTE | 2017-06-05 18:20 | P.PN ---
Subjective Progress Note Date: 06/05/17 This patient is a 72-year-old female who was evaluated yesterday for neurological assessment following altered mental status. Patient was found to have evidence suggesting a acute encephalopathy possibly metabolic in origin. She does have a history of acute kidney injury in the past. Her serum creatinine today is 2.10. She was advised to have EEG study done today but could not complete the study and it was canceled. She continues to show slight improvement with her mental status today. Her computed tomography scan of the brain performed yesterday failed to reveal any acute intracranial changes. There is mild to moderate diffuse age-related atrophy and chronic small vessel ischemic changes noted. This patient continues to show evidence of possible metabolic encephalopathy. We will await further recommendations from nephrology. Patient does seem to follow simple commands today. Her was at bedside and states that she still seems to have episodes of confusion. Patient was sitting up in chair today and seems to be more alert and awake. There is been some improvement with her total creatinine dropping to 1.9. She is being treated for her atrial fibrillation and is currently being anticoagulated. Her 2-D echocardiogram showed ejection fraction of 2530%. We are waiting further recommendations from cardiology. She does show some improvement with mental status today according to the . We will continue close neurological follow-up for the patient during this admission. Objective - Vital Signs Vital signs: Vital Signs Temp 96.9 F L 06/05/17 08:00 Pulse 82 06/05/17 12:00 Resp 17 06/05/17 12:00 BP 145/86 06/05/17 12:00 Pulse Ox 93 L 06/05/17 12:00 Intake & Output 06/04/17 06/05/17 06/05/17 18:59 06:59 18:59 Intake Total 200 10 240 Output Total 650 300 Balance -450 10 -60 Intake: IV 10 0.9 10 Intake, IV Titration 200 Amount Magnesium Sulfate-D5w Pmx 200 1 gm In Dextrose/Water 1 100ml.bag @ 100 mls/hr IVPB Q1H [facility] Rx#: [id number] Oral 240 Output: Urine 650 300 Other: Voiding Method Toilet Toilet Bedside Commode - Exam Physical examination: PHYSICAL EXAMINATION: Patient is resting comfortably in bed. VITAL SIGNS: Blood pressure is [138/93]. Heart rate is [97]. Respiration is [17] . Temperature is [97.0]. HEENT: Head is atraumatic, neck is supple, there were no carotid bruits. CHEST: Lungs are clear to auscultation and percussion. CARDIAC: S1, S2 normal rate and rhythm. There is no murmur. ABDOMEN: Soft and nontender. Bowel sounds are present. EXTREMITIES: There is no pedal edema. Peripheral pulses are present. Neurological examination: This patient has a nonfocal neurological examination today. Patient does seem to be more awake and alert. She is seen sitting in her chair next to her bed and able to answer questions appropriately. - Labs CBC & Chem 7: 06/04/17 01:45 06/05/17 05:45 Labs: Abnormal Lab Results - Last 24 Hours (Table) 06/04/17 06/04/17 06/05/17 Range/Units 17:01 20:44 05:45 Sodium 130 L (137-145) mmol/L Chloride 92 L (98-107) mmol/L BUN 33 H (7-17) mg/dL Creatinine 1.90 H (0.52-1.04) mg/dL Glucose 133 H (74-99) mg/dL POC Glucose (mg/dL) 166 H 168 H (75-99) mg/dL 06/05/17 06/05/17 Range/Units 06:10 12:06 Sodium (137-145) mmol/L Chloride (98-107) mmol/L BUN (7-17) mg/dL Creatinine (0.52-1.04) mg/dL Glucose (74-99) mg/dL POC Glucose (mg/dL) 139 H 132 H (75-99) mg/dL Microbiology - Last 24 Hours (Table) 06/04/17 18:34 Gram Stain - Preliminary Leg - Right Wound Culture - Preliminary 06/02/17 16:19 Urine Culture - Final Urine,Clean Catch Klebsiella pneumoniae Assessment and Plan (1) Acute encephalopathy Current Visit: Yes Status: Acute Code(s): G93.40 - ENCEPHALOPATHY, UNSPECIFIED SNOMED Code(s): 47710884 (2) Atrial fibrillation Current Visit: Yes Status: Acute Code(s): I48.91 - UNSPECIFIED ATRIAL FIBRILLATION SNOMED Code(s): 67989362 (3) Renal failure Current Visit: Yes Status: Acute Code(s): N19 - UNSPECIFIED KIDNEY FAILURE SNOMED Code(s): 93314045 (4) Weakness Current Visit: Yes Status: Acute Code(s): R53.1 - WEAKNESS SNOMED Code(s) : 10491554 Plan: This patient is a 72-year-old female who is being evaluated for altered mental status and acute encephalopathy. She was unable to complete a routine EEG today due to anxiety and panic attack symptoms. This was canceled today. She is being followed closely for acute renal failure in her serum creatinine today is 2.10. She does have history of underlying cardiomyopathy and cardiology is monitoring her condition closely. When the patient is stable she may require a stress test as outpatient. The patient is slowly showing slight improvement with mental status. We will attempt to obtain a EEG possibly tomorrow as she had difficulty last week due to anxiety levels. She is more awake and alert today and is able to follow simple commands. She is being anticoagulated for her history of atrial fibrillation. Her clinical history is one of mild encephalopathy which seems to be improving with time. Would continue current treatment plans for this patient including treatment of underlying renal failure. Overall prognosis at this time remains guarded. We will continue close neurological follow-up for this patient during this admission.
[2017-06-05] MEDS: QUEtiapine 25 MG TAB PO SCH (20:39)
[2017-06-05] MEDS: CEFUROXIME 250 MG TAB PO SCH (20:39)
[2017-06-05] MEDS: ATORVASTATIN 40 MG TAB PO SCH (20:39)
--- NOTE | 2017-06-05 22:39 | CONS ---
CONSULTATION DATE OF SERVICE: 06/05/2017. REASON FOR CONSULTATION: 1. Right leg infected hematoma, question of cellulitis. 2. Urinary tract infection. HISTORY OF PRESENT ILLNESS: Patient is a 72-year-old female who was brought into the ER at [facility] on 06/02/2017. However, the patient apparently did have an injury to the right lower leg from the side of the bed. The patient started having breathing. EMS was called in who brought the patient to the ER. The patient did have a compression dressing applied. General surgery was consulted, who recommended compression dressing and need for surgical evacuation. Medical team saw the patient yesterday with concern for possible cellulitis. She was on Rocephin for presumed UTI and was switched over to Cefazolin. Infectious Disease was consulted for further recommendation regarding antibiotic therapy. The patient at this time is afebrile. She is breathing comfortably. Denies having any chest pain, shortness of breath, cough, no abdominal pain. She did have very mild pain to the right leg area, dull aching about 2 to 3 out of 10 and no radiation. She still has some blood-stained drainage from this area. No nausea, vomiting. No abdominal pain. No diarrhea. REVIEW OF SYSTEMS: Constitutional: Positive for weakness. No high-grade fever. Eyes: No complaint. ENT no complaint. Respiratory no complaint. Cardiovascular no complaint. Genitourinary no complaint. Gastrointestinal: No complaint. Musculoskeletal as per HPI. Integumentary as per HPI. PSYCHOLOGICAL: No complaint. Endocrine: No complaint. Neurologic no complaint. PAST MEDICAL HISTORY: Significant for hypertension, gastroesophageal reflux disease, history of pneumonia, renal insufficiency, osteoarthritis. PAST SURGICAL HISTORY: Appendectomy, right hip replacement. Surgery for ectopic with fallopian tube was removed and . SOCIAL HISTORY: Remote history of smoking. No drinking or drug use. FAMILY HISTORY: Mother with history of disease. Father history of CVA/TIA and hypertension, from stroke at age of 45. ALLERGIES: PENICILLIN with a rash. Tolerated Cefazolin without any problem. ALSO ALLERGIC TO NICKEL. MEDICATIONS: Medication include the patient is currently on Reagan, aspirin, Lipitor, doxepin, Lasix, morphine sulfate, Nitrostat, prednisone, Seroquel. EXAMINATION: Blood pressure 145/86 with a pulse of 82, temperature 96.9. She is 93% on room air. General description is an elderly female up in the chair in no distress. No tachypnea or accessory muscles of respiration use. HEENT: Shows slight pallor. No scleral icterus. Oral mucosal membranes dry. Neck: Trachea central. No thyromegaly. Lungs unlabored breathing. Clear to auscultation anteriorly. No wheeze or crackles. Heart S1, S2. Regular rate and rhythm. ABDOMEN: Soft, no tenderness. No guarding. No rigidity. Right leg did have a hematoma on the cardoza area which is cold to touch with no erythema, no warmth to touch. More of a blood-stained drainage. No purulence was noticed. No foul smelling. Neurological: Patient is awake, alert, oriented. Mood and affect normal. LABS: Hemoglobin 10.8, white count 3.3 with a BUN of 33, creatinine 1.90. Admission creatinine was 2.07. UA was positive with large leukocyte esterases, more than 1-2 WBC. Cultures showing Klebsiella pneumoniae that is sensitive pathogen. She did have cultures obtained from the right leg wound currently negative. DIAGNOSTIC IMPRESSION AND PLAN: 1. Patient with right leg hematoma from a trauma. Clinically doubt any secondary bacterial infection or cellulitis. We will recommend local wound care only with compression dressing antibiotic therapy. 2. Patient who do have a Klebsiella urinary tract infection mild. Would have recommended an oral Cipro, could not use because of her cellulitis with drug interaction. PLAN: 1. Discontinue cefazolin as clinically doubt cellulitis or infected wound. 2. We will give a short course of oral Ceftin to cover for the Klebsiella UTI about 5 days duration. 3. IBD to the hematoma area followed by an Gilles wrap to keep the swelling down. was present at bedside. All questions were answered. MMODL / IJN: [id number] /
[2017-06-06 05:52] LABS: Basophils % (A) 0 %; Eosinophils % (A) 1 %; HCT 30.7 % (34.0-46.0); HGB 10.4 gm/dL (11.4-16.0); Lymphocytes # (A) 0.8 k/uL (1.0-4.8); Lymphocytes % (A) 13 %; MCH 30.1 pg (25.0-35.0); MCHC 33.8 g/dL (31.0-37.0); MCV 89.1 fL (80.0-100.0); Mean Platelet Volume 7.7; Monocytes # (A) 0.3 k/uL (0-1.0); Monocytes % (A) 5 %; Neutrophils # (A) 5.3 k/uL (1.3-7.7); Neutrophils % (A) 80 %; RBC 3.45 m/uL (3.80-5.40); RDW 13.4 % (11.5-15.5); WBC 6.6 k/uL (3.8-10.6)
[2017-06-06 05:58] LABS: Platelet Count 179 k/uL (150-450)
[2017-06-06 06:05] LABS: Calcium 9.6 mg/dL (8.4-10.2); Potassium 4.5 mmol/L (3.5-5.1)
--- NOTE | 2017-06-06 08:32 | P.PN ---
Subjective Patient is seen in follow-up for acute kidney injury and hyponatremia. Patient presented to the hospital after sustaining a fall and right lower extremity laceration. Patient was also noted to be in A. fib with RVR. She was started on heparin drip but developed bleeding from the laceration and subsequently heparin was discontinued. Bleeding is better controlled and hemoglobin is stable. She is noted to have an ejection fraction of 25-30% with moderate pulmonic regurgitation. She is maintained on Lasix 40 mg IV twice daily. Her urine output is good. Her dyspnea is improved. Denies any active chest pain or shortness of breath. Heart rate is controlled. Renal function stable with creatinine at 1.86 today. Vital signs are stable. General: The patient appeared well nourished and normally developed. HEENT: Head exam is unremarkable. Neck is without jugular venous distension. LUNGS: Lungs are clear to auscultation and percussion. Breath sounds decreased. HEART: Rate and Rhythm are regular. First and second heart sounds normal. No murmurs, rubs or gallops. ABDOMEN: Abdominal exam reveals normal bowel sounds. Non-tender and non- distended. No evidence of peritonitis. EXTREMITITES: 1+ edema. Lower extremity erythema noted. Objective - Vital Signs Vital signs: Vital Signs Temp 97.4 F L 06/06/17 04:00 Pulse 99 06/06/17 04:00 Resp 17 06/06/17 04:00 BP 137/97 06/06/17 04:00 Pulse Ox 96 06/06/17 04:00 Intake & Output 06/05/17 06/06/17 06/06/17 18:59 06:59 18:59 Intake Total 240 Output Total 700 Balance -460 Weight 107.7 kg Intake: Oral 240 Output: Urine 700 Other: Voiding Method Bedside Commode Bedside Commode # Voids 1 - Labs CBC & Chem 7: 06/06/17 05:29 06/06/17 05:29 Labs: Abnormal Lab Results - Last 24 Hours (Table) 06/05/17 06/05/17 06/06/17 Range/Units 12:06 17:20 05:29 RBC 3.45 L (3.80-5.40) m/uL Hgb 10.4 L (11.4-16.0) gm/dL Hct 30.7 L (34.0-46.0) % Lymphocytes # 0.8 L (1.0-4.8) k/uL Sodium (137-145) mmol/L Chloride (98-107) mmol/L Carbon Dioxide (22-30) mmol/L BUN (7-17) mg/dL Creatinine (0.52-1.04) mg/dL Glucose (74-99) mg/dL POC Glucose (mg/dL) 132 H 158 H (75-99) mg/dL 06/06/17 Range/Units 05:29 RBC (3.80-5.40) m/uL Hgb (11.4-16.0) gm/dL Hct (34.0-46.0) % Lymphocytes # (1.0-4.8) k/uL Sodium 132 L (137-145) mmol/L Chloride 93 L (98-107) mmol/L Carbon Dioxide 20 L (22-30) mmol/L BUN 38 H (7-17) mg/dL Creatinine 1.86 H (0.52-1.04) mg/dL Glucose 129 H (74-99) mg/dL POC Glucose (mg/dL) (75-99) mg/dL Microbiology - Last 24 Hours (Table) 06/04/17 18:34 Gram Stain - Preliminary Leg - Right Wound Culture - Preliminary Assessment and Plan Plan: Assessment: #1. Nonoliguric acute kidney injury secondary to ATN secondary to cardiorenal syndrome. Renal function stable with creatinine of 1.86 today. Unclear as to what her baseline renal function is. No evidence of hydronephrosis noted on renal ultrasound. #2. Hypervolemic hyponatremia. Improving with diuresis. s/p 1 dose of tolvaptan. #3. Metabolic acidosis secondary to acute kidney injury. #4. Volume overload. Improving with diuresis. #5. UTI with urine culture positive for Klebsiella maintained on antibiotics. #6. Systolic CHF with ejection fraction of 25-30% with moderate pulmonic regurgitation. Plan: Continue Lasix 40 mg IV twice daily. 1200 mL fluid restriction. Maintain oral sodium bicarbonate 1300 mg twice daily. Avoid nephrotoxic agents and hypotensive episodes. Repeat electrolytes in the morning.
[2017-06-06] MEDS: predniSONE 20 MG TAB PO SCH (10:27)
[2017-06-06] MEDS: ASPIRIN 325 MG TAB PO SCH (10:27)
[2017-06-06] MEDS: CEFUROXIME 250 MG TAB PO SCH (10:27)
[2017-06-06] MEDS: SODIUM BICARBONATE TAB 650 MG TAB PO SCH (10:28)
[2017-06-06] MEDS: FUROSEMIDE 10 MG/ML 4 ML VIAL IV SCH (10:29)
[2017-06-06] MEDS: DOXEPIN 25 MG CAP PO SCH (10:29)
[2017-06-06 13:54] VITALS: BP 142/89; PULSE 98; RESP 18; TEMP 97.6
[2017-06-06] MEDS ORDERED: LORazepam 1 MG TAB PO STA (13:55)
--- NOTE | 2017-06-06 14:58 | PN ---
PROGRESS NOTE DATE OF SERVICE: 06/06/2017 REASON FOR FOLLOWUP: 1. Right leg hematoma. 2. UTI. INTERVAL HISTORY: The patient is afebrile. She is breathing comfortably. Denies having any chest pain, shortness of breath: No cough, no abdominal pain or any pain in the right leg area. PHYSICAL EXAMINATION: Blood pressure is 142/89 with a pulse of 90, temperature 97.6. She is 95% on room air. General description is a elderly female, up in the bed in no distress. RESPIRATORY SYSTEM: Unlabored breathing, clear to auscultation anteriorly. HEART: S1, S2. Regular rate and rhythm. ABDOMEN: Source, tenderness. Right leg is currently dressed up no obvious drainage on the dressing. LABS: Hemoglobin 10.4, white count 6.6 with a BUN of 38, creatinine 4.8. DIAGNOSTIC IMPRESSION AND PLAN: 1. Patient with right flank hematoma. No evidence of any cellulitis. Local wound care with an ABD and an Gilles wrap to keep the swelling down. 2. Patient with Klebsiella urinary tract infection with drug interaction between Celexa, Cipro, currently on Ceftin. Should continue for about 3 to 4 days to finish a course of physical therapy. Continue supportive care. MMODL / IJN: [id number] /
--- NOTE | 2017-06-06 17:05 | P.PN ---
Subjective Progress Note Date: 06/06/17 This patient is a 72-year-old female who was initially admitted to Hospital with symptoms of hyponatremia and right lower extremity laceration. Neurology was consulted as she had mild mental status changes. She has been monitored over the weekend and has shown significant improvement overall in her mental status. She was sent for repeat attempt for EEG testing today but the patient refused. She is resting comfortably at this time. She is being treated by nephrology for nonoliguric acute kidney injury secondary to ATN and cardiorenal syndrome. Metabolically she is showing slight improvement. She denies any headache or focal weakness today on examination. As noted she is refused to have EEG testing done and we will cancel this study for her at this time. She does have evidence suggesting possibility of mild metabolic encephalopathy which is slowly improving with time. We will continue close neurological follow -up for the patient. She is being followed closely by infectious disease and does have evidence of Klebsiella urinary tract infection. They're adjusting her antibiotics at this time. The patient is being considered for possible discharge home later today. We will continue close neurological follow-up with the patient during this admission. Objective - Vital Signs Vital signs: Vital Signs Temp 97.6 F 06/06/17 08:00 Pulse 98 06/06/17 08:00 Resp 18 06/06/17 08:00 BP 142/89 06/06/17 08:00 Pulse Ox 95 06/06/17 08:00 Intake & Output 06/05/17 06/06/17 06/06/17 18:59 06:59 18:59 Intake Total 240 60 Output Total 700 Balance -460 60 Weight 107.7 kg Intake: Oral 240 60 Output: Urine 700 Other: Voiding Method Bedside Commode Bedside Commode Bedside Commode Diaper # Voids 1 - Exam Physical examination: PHYSICAL EXAMINATION: Patient is resting comfortably in bed. VITAL SIGNS: Blood pressure is [142/89]. Heart rate is [98]. Respiration is [18] . Temperature is [97.7]. HEENT: Head is atraumatic, neck is supple, there were no carotid bruits. CHEST: Lungs are clear to auscultation and percussion. CARDIAC: S1, S2 normal rate and rhythm. There is no murmur. ABDOMEN: Soft and nontender. Bowel sounds are present. EXTREMITIES: There is no pedal edema. Peripheral pulses are present. Neurological examination: This patient has a nonfocal neurological examination today. Patient does seem to be more awake and alert. She is seen sitting in her chair next to her bed and able to answer questions appropriately. - Labs CBC & Chem 7: 06/06/17 05:29 06/06/17 05:29 Labs: Abnormal Lab Results - Last 24 Hours (Table) 06/05/17 06/06/17 06/06/17 Range/Units 17:20 05:29 05:29 RBC 3.45 L (3.80-5.40) m/uL Hgb 10.4 L (11.4-16.0) gm/dL Hct 30.7 L (34.0-46.0) % Lymphocytes # 0.8 L (1.0-4.8) k/uL Sodium 132 L (137-145) mmol/L Chloride 93 L (98-107) mmol/L Carbon Dioxide 20 L (22-30) mmol/L BUN 38 H (7-17) mg/dL Creatinine 1.86 H (0.52-1.04) mg/dL Glucose 129 H (74-99) mg/dL POC Glucose (mg/dL) 158 H (75-99) mg/dL Microbiology - Last 24 Hours (Table) 06/04/17 18:34 Gram Stain - Preliminary Leg - Right Wound Culture - Preliminary Assessment and Plan (1) Acute encephalopathy Current Visit: Yes Status: Acute Code(s): G93.40 - ENCEPHALOPATHY, UNSPECIFIED SNOMED Code(s): 71096556 (2) Atrial fibrillation Current Visit: Yes Status: Acute Code(s): I48.91 - UNSPECIFIED ATRIAL FIBRILLATION SNOMED Code(s): 49144598 (3) Renal failure Current Visit: Yes Status: Acute Code(s): N19 - UNSPECIFIED KIDNEY FAILURE SNOMED Code(s): 66298000 (4) Weakness Current Visit: Yes Status: Acute Code(s): R53.1 - WEAKNESS SNOMED Code(s) : 54090751 Plan: This patient is a 72-year-old female who is being evaluated for altered mental status and acute encephalopathy. She was unable to complete a routine EEG today due to anxiety and panic attack symptoms. This was canceled today. She is being followed closely for acute renal failure in her serum creatinine today is 2.10. She does have history of underlying cardiomyopathy and cardiology is monitoring her condition closely. When the patient is stable she may require a stress test as outpatient. The patient is slowly showing slight improvement with mental status. Attempt was made to repeat EEG this morning. Again the patient refused. This study will be canceled. She is more awake and alert today and is able to follow simple commands. She is being anticoagulated for her history of atrial fibrillation. Her clinical history is one of mild encephalopathy which seems to be improving with time. Patient is being treated for underlying urinary tract infection and is being followed closely by infectious disease. Her findings are consistent with mild metabolic encephalopathy at this time. Would continue current treatment plans for this patient including treatment of underlying renal failure. Patient is being considered for possible discharge home later today. Overall prognosis at this time remains guarded. We will continue close neurological follow-up for this patient during this admission.
--- NOTE | 2017-06-06 22:29 | P.DS ---
Providers Date of admission: 06/03/17 11:53 Expected date of discharge: 06/06/17 Attending physician: Marciano Altman Consults: 06/02/17 08:14 Consult Physician Stat Consulting Provider: Anaid Poe Consult Reason/Comments: Renal failure Do you want consulting provider notified?: Yes Consult Physician Urgent Consulting Provider: Gualberto Angulo Consult Reason/Comments: Elevated troponin, atrial fibrillation Do you want consulting provider notified?: Yes 06/02/17 18:57 Consult Physician Stat Consulting Provider: Eddie Meng Consult Reason/Comments: hematoma and laceration of right lower leg Do you want consulting provider notified?: Already Contacted 06/03/17 07:32 Consult Physician Routine Consulting Provider: Paulino Galdamez Consult Reason/Comments: altered mental status Do you want consulting provider notified?: Yes 06/04/17 16:08 Consult Physician Routine Consulting Provider: Jose Alba Consult Reason/Comments: cellulitis Do you want consulting provider notified?: Yes 06/06/17 12:01 Consult Physician Stat Consulting Provider: Sachi Clay Consult Reason/Comments: confused Do you want consulting provider notified?: Yes Primary care physician: Marciano Altman Hospital Course: Discharge diagnosis Altered mental status due to acute metabolic encephalopathy. Multifactorial Acute on chronic kidney disease. Baseline creatinine not known. Secondary to ATN and possible cardiorenal. Improved with dialysis Hypervolemic hyponatremia Acute on chronic CHF systolic dysfunction ejection fraction 20-25% Chronic persistent atrial fibrillation. Not anticoagulated due to hematoma from recent fall Elevated troponin level likely due to renal failure Hypertension Cardiomyopathy Bilateral lower extremities cellulitis Klebsiella pneumonia urinary tract infection Hospital course This is a 72-year-old female with history of hypertension who presented to the hospital after experiencing a fall at home, and incurring a laceration to her right leg. Patient was found to have atrial fibrillation with a rapid ventricular rate. Currently rate is controlled and was started on anticoagulation. 2-D echocardiography showed ejection fraction 25-30%. Patient also having acute on chronic kidney disease and suspected cardiorenal. Nephrology and cardiology is following. 06/05/2017 Patient denied any complaints of chest pain or shortness of breath. Patient says that she is very concerned about her renal function. Otherwise patient seems to be confused. No fever no chills. Creatinine level improved to 1.9 today. Patient wants to be discharged home today. Patient was continued on Lasix and follow-up renal function. Sodium level is improving to 130 today. Cardiology and neurology and nephrology has seen the patient. Patient is refusing EEG today also. Patient will be continued on antibiotics for urinary tract infection in the form of Ceftin. Otherwise patient wishes to be discharged home and has become paranoid about being killed here. Patient's is at bedside and wants to take her home. Otherwise patient is hemodynamically stable. Patient is to follow-up with nephrology and cardiology as an outpatient. Anticoagulation is to be started back once the hematoma improves and cardiology follow-up in a week. Discussed with her at bedside in detail. Otherwise patient is being discharged home. Recommended to follow with primary care physician in 1-3 days. Cozaar and is to be restarted back once the renal function stabilizes. Patient was started on low-dose beta blockers. Diuresis with Lasix 40 mg twice a day.Bumex has been held. Vital Signs - 24 hr 06/06/17 06/06/17 06/06/17 00:00 04:00 08:00 Temperature 97.0 F L 97.4 F L 97.6 F Pulse Rate [ 93 99 98 Pulse Oximetery ] Respiratory 18 17 18 Rate Blood Pressure 157/92 137/97 142/89 [Right Arm] O2 Sat by Pulse 95 96 95 Oximetry Discharge physical examination Patient is lying in the bed comfortably, no acute distress, awake alert and oriented. Confused. HEENT: Normocephalic. Neck is supple. Pupils reactive. Nostrils clear. Oral cavity is moist. Ears reveal no drainage. Neck reveals no JVD, carotid bruits, or thyromegaly. CHEST EXAMINATION: Trachea is central. Symmetrical expansion. Lung rodriguez clear to auscultation and percussion. CARDIAC: Normal S1, S2 with no gallops. No murmurs. Irregularly irregular rhythm ABDOMEN: Soft. Bowel sounds normal. No organomegaly. No abdominal bruits. Extremities: 2+ edema with dark discoloration of lower extremities. No clubbing or cyanosis Neurologically awake, alert, oriented x3 with well-coordinated movements. No focal deficits noted Skin: No rash or skin lesions. Psychiatric: Could not be assessed completely Musculoskeletal: No joint swelling or deformity. Normal range of motion. Total time taken greater than 35 minutes including 18 minutes for counseling and coordination of care. Patient Condition at Discharge: Good Plan - Discharge Summary Discharge Rx Participant: No New Discharge Prescriptions: New Cefuroxime [Ceftin] 500 mg PO BID 4 Days #8 tab Aspirin 81 mg PO DAILY #30 tab Atorvastatin [Lipitor] 40 mg PO HS #30 tab Furosemide [Lasix] 40 mg PO BID 30 Days #60 tablet Sodium Bicarbonate Tab 650 mg PO BID 7 Days #14 tab Metoprolol Tartrate [Lopressor] 12.5 mg PO BID #60 dose Continue HYDROcodone/APAP 7.5-325MG [[place] 7.5-325] 1 tab PO Q6HR PRN PRN Reason: Pain Doxepin [SINEquan] 25 mg PO DAILY Discontinued Losartan [Cozaar] 100 mg PO DAILY Bumetanide 1 mg PO DAILY Discharge Medication List Doxepin [SINEquan] 25 mg PO DAILY 06/02/17 [History] HYDROcodone/APAP 7.5-325MG [[place] 7.5-325] 1 tab PO Q6HR PRN 06/02/17 [History] Aspirin 81 mg PO DAILY #30 tab 06/06/17 [Rx] Atorvastatin [Lipitor] 40 mg PO HS #30 tab 06/06/17 [Rx] Cefuroxime [Ceftin] 500 mg PO BID 4 Days #8 tab 06/06/17 [Rx] Furosemide [Lasix] 40 mg PO BID 30 Days #60 tablet 06/06/17 [Rx] Metoprolol Tartrate [Lopressor] 12.5 mg PO BID #60 dose 06/06/17 [Rx] Sodium Bicarbonate Tab 650 mg PO BID 7 Days #14 tab 06/06/17 [Rx] Follow up Appointment(s)/Referral(s): Marciano Altman MD [Primary Care Provider] - 06/14/17 3:00 pm (Tuesday) Sal Cook DO [STAFF PHYSICIAN] - 1 Week (Spoke to the legal secretary receptionist. Office will call with appointment time) Denis Carlisle MD [STAFF PHYSICIAN] - 06/21/17 2:00 pm (Tuesday) [facility] Visiting Nurse, [NON-STAFF] - As Needed Patient Instructions/Handouts: A-fib (Atrial Fibrillation) (DC) Discharge Disposition: HOME WITH HOME HEALTH SERVICES
== END 2017-06-06 17:08 | disposition home health service (06) | DRG 682 ==
LOC: EC 05:39 → 6SEL 08:14 → OBSVTOIN 06-03 11:53
PROVIDERS: ADMIT Family Medicine; ATTEND Family Medicine
DX: N17.0 Acute kidney failure with tubular necrosis (principal); G93.41 Metabolic encephalopathy; I50.23 Acute on chronic systolic (congestive) heart failure; E87.2 Acidosis; E87.1 Hypo-osmolality and hyponatremia; I42.9 Cardiomyopathy, unspecified; L03.115 Cellulitis of right lower limb; I48.1 Persistent atrial fibrillation; I13.0 Hypertensive heart and chronic kidney disease with heart failure and stage 1 through stage 4 chronic kidney disease, or unspecified chronic kidney disease; L03.116 Cellulitis of left lower limb; N39.0 Urinary tract infection, site not specified; B96.1 Klebsiella pneumoniae [K. pneumoniae] as the cause of diseases classified elsewhere; I37.1 Nonrheumatic pulmonary valve insufficiency; I48.2 Chronic atrial fibrillation; K21.9 Gastro-esophageal reflux disease without esophagitis; M17.0 Bilateral primary osteoarthritis of knee; N18.9 Chronic kidney disease, unspecified; S30.1XXA Contusion of abdominal wall, initial encounter; S80.11XA Contusion of right lower leg, initial encounter; S80.12XA Contusion of left lower leg, initial encounter; S81.811A Laceration without foreign body, right lower leg, initial encounter; W18.30XA Fall on same level, unspecified, initial encounter; Y92.009 Unspecified place in unspecified non-institutional (private) residence as the place of occurrence of the external cause; Z79.01 Long term (current) use of anticoagulants; Z79.82 Long term (current) use of aspirin; Z79.899 Other long term (current) drug therapy; Z82.3 Family history of stroke; Z82.49 Family history of ischemic heart disease and other diseases of the circulatory system; Z87.01 Personal history of pneumonia (recurrent); Z87.891 Personal history of nicotine dependence; Z96.641 Presence of right artificial hip joint
CPT/HCPCS: 12005; 36415; 70450; 71045; 71046; 76770; 80048; 80053; 80061; 81001; 82550; 82553; 83605; 83735; 83880; 83930; 83935; 84300; 84484; 85025; 85027; 85379; 85610; 85730; 87070; 87077; 87086; 87186; 87205; 90471; 90715; 93005; 93306; 94760; 96365; 96366; 96375; 96376; 99285